=== PATIENT | female | born 1940 | race Caucasian/White ===

== ENCOUNTER 2017-05-23 09:28 | Inpatient (IN) ==
[2017-05-23] MEDS ORDERED: LORazepam 1 MG TABLET PO ONE (09:54)
--- OUTSIDE RECORDS SUMMARY | 2017-05-23 10:30 | External Medical Summary ---
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 76696734 Problem Unspecified urinary R32 Active 775017213 incontinence Problem Cervical disc M50.90 Active 340270919 disease Problem Cognitive impairment R41.89 Active 026594460 Problem Memory impairment R41.3 Active 847136854 Problem Bilateral carotid I77.9 Active 473781698 artery disease Problem Anxiety F41.9 Active 83525170 Problem Hyperlipidemia E78.5 Active 19630276 ALLERGIES No Information SOCIAL HISTORY Never Assessed PLAN OF CARE VITAL SIGNS MEDICATIONS Unknown Medications RESULTS No Results PROCEDURES No Known procedures IMMUNIZATIONS No Known Immunizations MEDICAL (GENERAL) HISTORY Type Description Date Medical History hyperlipidemia Medical History Hypothyroidism Medical History urinary incontinence Medical History R Carotid Artery stenosis, 50-69% - Doppler - 05/26 - Repeat in 2 yrs Surgical History hysterectomy with BSO, abdominal (benign) 1966 Surgical History Right Upper Arm Cyst Removed 1974 Surgical History Left carotid endarterectomy--Dr. Fang 11/19/09 Surgical History Colonoscopy- normal limits -repeat in 5 yrs due to 02/06/12 hx- (Dr. Overton) Surgical History Negative Cardiolite Stress Test 11/23/12 Surgical History colonoscopy Repeat 5 yr due to prior hx polyps 2006 Hospitalization History [facility]- Chest Pain 04/16/08
--- OUTSIDE RECORDS SUMMARY | 2017-05-23 10:30 | External Medical Summary ---
:1940 Author Organization [employer] Care Team Providers Name Role Phone Fransisco Blanco Provider Role Unavailable Allergies, Adverse Reactions, Alerts Substance Reaction Event Type Latex Info Not Available Drug Allergy sulfa anaphylaxis Drug Allergy Lipitor ruined her muscles Drug Allergy Crestor tingling in extremities Drug Allergy Clindamycin dizzy Drug Allergy Problems Problem Type Condition Code Onset Dates Condition Status Assessment Mixed hyperlipidemia E78.2 Active Assessment Bilateral carotid artery disease I77.9 Active Assessment Other fatigue R53.83 Active Assessment Screening breast examination Z12.39 Active Problem Erythromelalgia 443.82 Active Problem Right carotid bruit 785.9 Active Problem Bilateral carotid artery disease I77.9 Active Problem Hypothyroidism, Unspecified 244.9 Active Assessment Primary osteoarthritis involving M15.0 Active multiple joints Problem Urinary incontinence; unspecified 788.30 Active Problem Hyperlipidemia, Other and 272.4 Active unspecified Medications Medication Code Code Instructions Start End Status Dosage System Date Date Probiotic NDC 39441-6 - Orally as directed 025 [place] [address]-6 0.05 % Nov 12 application 163-30 Externally 2014 to [place] [address]-4 25 MG Orally 3 capsule as 840-13 bid needed Coenzyme Q10 NDC 42770-2 100 MG Orally 1 capsule with 446-20 Once a day a meal Multivitamins NDC 35622-4 Orally as directed 2040 [place] [address]-0 15 MG Orally Oct 19, 1 tablet 030-01 Once a [place] 2014 [place] [address]-4 1000 MG *keep September 07 tablet at 080-90 on file as pt 2011 bedtime does not need today* Orally Q HS Aspirin NDC 49702-0 81 MG ORAL QD July 10 TABLETS 100-12 (every day) 2010 [place] [address]-4 1200 Orally QD July 11 capsules 557-72 (Every day) 2011 [place] [address]-3 10 MG Orally Oct 19, 1 tablet 283-30 Once a day 2014 Ativan NDC 53389-7 0.5 MG Orally Oct 19, 1 tablet 937-60 Twice a day prn 2015 anxiety Milk Thistle NDC 56011-2 - Orally as directed 1505 Biotin NDC 91036-8 1000 MCG Orally 1 tablet 9900 Once a day Glucosamine NDC 62634-5 Orally as directed Chondr 500 2488 Complex Procedures Procedure Coding System Code Date LIPID PROFILE CPT-4 38493 May 06, 2015 TSH CPT-4 91760 May 06, 2015 COMP PROFILE CPT-4 13435 May 06, 2015 OFFICE VISITEST PT CPT-4 26048 May 06, 2015 Vital Signs Date/Time: May 06, 2015 Blood Pressure Systolic 132 mm Hg Height 61 in Weight 124 lbs BMI 23.43 Index Blood Pressure Diastolic 70 mm Hg Results No Known Results Summary Purpose [employer] Submission
--- OUTSIDE RECORDS SUMMARY | 2017-05-23 10:30 | External Medical Summary ---
:[address] 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 19384761 Problem Hyperlipidemia E78.5 Active 20757196 Problem Memory impairment R41.3 Active 572095259 ALLERGIES Substance Reaction Event Type Date Status Latex anaphylaxis Drug Allergy Oct, Active sulfa anaphylaxis Drug Allergy Oct, Active Lipitor ruined her muscles Drug Allergy Oct, Active Iodine "can't handle it" Drug Allergy Oct, Active Crestor tingling in extremities Drug Allergy Oct, Active Clindamycin dizzy Drug Allergy Oct, Active SOCIAL HISTORY No smoking Hx information available PLAN OF CARE Activity Details Follow Up prn Reason: VITAL SIGNS Weight 122.7 lbs 2016-10-17 Height 61 in 2016-10-17 BMI 23.18 kg/m2 2016-10-17 Blood pressure systolic 128 mm Hg 2016-10-17 Blood pressure diastolic 78 mm Hg 2016-10-17 MEDICATIONS Medication Instructions Dosage Frequency Start End Duration Status Date Date Glucosamine Orally Once a 1 capsule 24h Active Chondr 500 day Complex Niacin 500 MG Orally Once a 1 capsule 24h 30 day(s) Active day L-Lysine 1000 MG Orally Once a 1 tablet 24h Active day Tylenol PM Extra Orally Once a 1 tablet at 30 day(s) Active Strength 25-500 day PRN bedtime as MG needed Co Q 10 100 MG Orally Once a 1 capsule with 24h 30 day(s) Active day a meal Minocin 100 MG Orally Twice a 1 capsule 12h 10 Oct, 30 days Active day 2016 Lorazepam 0.5 MG Orally BID- PRN 1 tablet as 30 days Active needed Biotin 5000 MCG Sublingual Once 1 tablet 24h Active a day Second Mesa 3 1000 MG Orally Once a 1 capsule 24h 30 day(s) Active day Milk Thistle 175 Orally Once a 1 capsule 24h Active MG day Triamcinolone Externally 1 application 12h Sep, Active Acetonide 0.1 % Twice a day sparingly to 2017 affected area Aspirin 81 MG ORAL QD (every 1 TABLET Jul, DAYS Active day) 2010 Lexapro 10 MG Orally Once a 1 tablet 24h 30 day(s) Active day Calcium, PO QD 1 tablet 24h Active Magnesium, Zinc with D3 and Vitamin D Probiotic - Orally Once a 1 capsule 24h Active day Ativan 0.5 MG Orally Twice a 1 tablet Sep, Active day prn anxiety 2016 RESULTS No Results PROCEDURES Procedure Date Ordered Related Diagnosis Body Site OFFICE VISITEST PT October 17, 2016 IMMUNIZATIONS No Known Immunizations
--- OUTSIDE RECORDS SUMMARY | 2017-05-23 10:30 | External Medical Summary ---
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 48669513 Problem Unspecified urinary R32 Active 536749025 incontinence Problem Cervical disc M50.90 Active 122711720 disease Problem Cognitive impairment R41.89 Active 920296397 Problem Memory impairment R41.3 Active 128236668 Problem Bilateral carotid I77.9 Active 354680473 artery disease Problem Anxiety F41.9 Active 32678247 Problem Hyperlipidemia E78.5 Active 64329293 ALLERGIES No Information SOCIAL HISTORY Never Assessed PLAN OF CARE Activity Details Pending Test NUCLEAR MED : Cardiolite Stress Test VITAL SIGNS MEDICATIONS Unknown Medications RESULTS No Results PROCEDURES Procedure Date Ordered Result Body Site STRESS EKG Apr 12, 2017 TC99M CARDIOLITE Apr 12, 2017 multiple studies, at rest and /or stress (exercise or Apr 12, 2017 pharmacologic) and /or redistribution and or/or rest reinjection IMMUNIZATIONS No Known Immunizations MEDICAL (GENERAL) HISTORY Type Description Date Medical History hyperlipidemia Medical History Hypothyroidism Medical History urinary incontinence Medical History R Carotid Artery stenosis, 50-69% - Doppler - 05/26 - Repeat in 2 yrs Surgical History hysterectomy with BSO, abdominal (benign) 1967 Surgical History Right Upper Arm Cyst Removed 1974 Surgical History Left carotid endarterectomy--Dr. Fang 11/19/09 Surgical History Colonoscopy- normal limits -repeat in 5 yrs due to 02/06/12 hx- (Dr. Overton) Surgical History Negative Cardiolite Stress Test 11/23/12 Surgical History colonoscopy Repeat 5 yr due to prior hx polyps 2006 Hospitalization History [facility]- Chest Pain 04/16/08
--- OUTSIDE RECORDS SUMMARY | 2017-05-23 10:30 | External Medical Summary ---
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
--- OUTSIDE RECORDS SUMMARY | 2017-05-23 10:30 | External Medical Summary ---
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
--- OUTSIDE RECORDS SUMMARY | 2017-05-23 10:30 | External Medical Summary ---
:1940 Author Organization [employer] Care Team Providers Name Role Phone Fransisco Blanco Provider Role Unavailable Allergies No Known Allergies Problems Problem Type Condition ICD-9 Code Onset Dates Condition Status Problem Right carotid bruit 785.9 Active Problem Urinary incontinence; 788.30 Active unspecified Problem Erythromelalgia 443.82 Active Problem Hyperlipidemia, Other and 272.4 Active unspecified Problem Hypothyroidism, Unspecified 244.9 Active Medications No Known Medications Results No Known Results Summary Purpose [employer] Submission
--- OUTSIDE RECORDS SUMMARY | 2017-05-23 10:30 | External Medical Summary ---
:1940 Author Organization [employer] Care Team Providers Name Role Phone Fransisco Blanco Provider Role Unavailable Allergies No Known Allergies Problems Problem Type Condition Code Onset Dates Condition Status Problem Erythromelalgia 443.82 Active Problem Right carotid bruit 785.9 Active Problem Bilateral carotid artery disease I77.9 Active Problem Hypothyroidism, Unspecified 244.9 Active Assessment Screening breast examination Z12.39 Active Problem Urinary incontinence; unspecified 788.30 Active Problem Hyperlipidemia, Other and 272.4 Active unspecified Medications No Known Medications Procedures Procedure Coding System Code Date COMPUTER AIDED SCR CPT-4 35556 May 06, 2015 BILATERAL SCR MAMMO CPT-4 46695 May 06, 2015 Results Name Result Date Reference Range Unit Abnormality Flag Mammogram, bilateral screening Summary Purpose [employer] Submission
--- OUTSIDE RECORDS SUMMARY | 2017-05-23 10:30 | External Medical Summary ---
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 31497300 Problem Hyperlipidemia E78.5 Active 17059784 Problem Memory impairment R41.3 Active 155498139 ALLERGIES Substance Reaction Event Type Date Status Latex anaphylaxis Drug Allergy Nov, Active sulfa anaphylaxis Drug Allergy Nov, Active Lipitor ruined her muscles Drug Allergy Nov, Active Iodine "can't handle it" Drug Allergy Nov, Active Crestor tingling in extremities Drug Allergy Nov, Active Clindamycin dizzy Drug Allergy Nov, Active SOCIAL HISTORY No smoking Hx information available PLAN OF CARE Activity Details Follow Up 4 Weeks Reason: VITAL SIGNS Weight 117.4 lbs 2016-12-07 Height 61 in 2016-12-07 BMI 22.18 kg/m2 2016-12-07 Blood pressure systolic 118 mm Hg 2016-12-07 Blood pressure diastolic 68 mm Hg 2016-12-07 MEDICATIONS Medication Instructions Dosage Frequency Start End Duration Status Date Date Probiotic - Orally Once a 1 capsule 24h Active day Calcium, PO QD 1 tablet 24h Active Magnesium, Zinc with D3 and Vitamin D Biotin 5000 MCG Sublingual Once 1 tablet 24h Active a day Co Q 10 100 MG Orally Once a 1 capsule with 24h 30 day(s) Active day a meal Glucosamine Orally Once a 1 capsule 24h Active Chondr 500 day Complex Lorazepam 0.5 MG Orally BID- PRN 1 tablet as 30 days Active needed Triamcinolone Externally 1 application 12h 08 Bello, Active Acetonide 0.1 % Twice a day sparingly to 2017 affected area Tylenol PM Extra Orally Once a 1 tablet at 30 day(s) Active Strength 25-500 day PRN bedtime as MG needed Milk Thistle 175 Orally Once a 1 capsule 24h Active MG day [place] 3 1000 MG Orally Once a 1 capsule 24h 30 day(s) Active day Ativan 0.5 MG Orally Twice a 1 tablet Sep, Active day prn anxiety 2016 L-Lysine 1000 MG Orally Once a 1 tablet 24h Active day Aspirin 81 MG ORAL QD (every 1 TABLET Jul, DAYS Active day) 2010 Niacin 500 MG Orally Once a 1 capsule 24h 30 day(s) Active day Lexapro 10 MG Orally Once a 1 tablet 24h 30 day(s) Active day RESULTS No Results PROCEDURES Procedure Date Ordered Related Diagnosis Body Site OFFICE VISITEST PT Dec 07, 2016 IMMUNIZATIONS No Known Immunizations
--- OUTSIDE RECORDS SUMMARY | 2017-05-23 10:30 | External Medical Summary ---
[...] Condition Code Onset Dates Condition Status Assessment Asthma 493.90 Active Problem Right carotid bruit 785.9 Active Problem Urinary incontinence; unspecified 788.30 Active Problem Erythromelalgia 443.82 Active Assessment Carotid artery disease 447.9 Active Assessment Hyperlipidemia 272.4 Active Problem Hyperlipidemia, Other and 272.4 Active unspecified Problem Hypothyroidism, Unspecified 244.9 Active Medications Medication Code Code Instructions Start End Status Dosage [place] [address]-29 100 MG Orally 1 capsule 46-20 [place] [address]-09 81 MG ORAL QD July 16 (one) 00-12 (every day) 2010 TABLET QD (every day) [place] [address]-94 4 MG Orally Once July 28, 1 tablet 72-90 a day 2014 [place] [address]-92 Orally as directed Chondr 500 [address] [place] [address]-37 1000 MCG Orally 1 tablet 900 [place] [address]-79 25 MG Orally bid 3 capsule 40-13 [place] [address]-43 Orally QD 1 tablet 30- [place] [address]-88 100-25 MCG/INH July 28, puff 59-10 Inhalation Once 2014 [place] [address]-94 - Orally as directed 505 [place] [address]-18 Orally as directed 041 [place] [address]-76 1200 Orally QD July 13, 3 capsules 57-72 (Every day) 2011 [place] [address]-50 1000 MG *keep on September 07 1 tablet at 80-90 file as pt does 2011 bedtime not need today* [place] [address]-17 - Orally as directed 256 Procedures Procedure Coding System Code Date OFFICE VISITEST PT CPT-4 79649 July 28, 2014 Vital Signs Date/Time: July 28, 2014 Blood Pressure Systolic 122 mm Hg Height 61 in Weight 124.6 lbs BMI 23.54 Index Blood Pressure Diastolic 72 mm Hg Results No Known Results Summary Purpose [employer] Submission
--- OUTSIDE RECORDS SUMMARY | 2017-05-23 10:31 | External Medical Summary ---
:1940 Author Organization [employer] Care Team Providers Name Role Phone Fransisco Blanco Provider Role Unavailable Allergies No Known Allergies Problems Problem Type Condition Code Onset Dates Condition Status Problem Right carotid bruit 785.9 Active Problem Urinary incontinence; unspecified 788.30 Active Problem Erythromelalgia 443.82 Active Assessment Hyperlipidemia 272.4 Active Assessment Encounter for long-term (current) V58.69 Active drug use Problem Hyperlipidemia, Other and 272.4 Active unspecified Problem Hypothyroidism, Unspecified 244.9 Active Medications No Known Medications Results No Known Results Summary Purpose [employer] Submission
--- OUTSIDE RECORDS SUMMARY | 2017-05-23 10:31 | External Medical Summary ---
[...] Active Problem Hypothyroidism, Unspecified 244.9 Active Assessment Other atopic dermatitis L20.89 Active Problem Urinary incontinence; unspecified 788.30 Active Problem Hyperlipidemia, Other and 272.4 Active unspecified Medications Medication Code Code Instructions Start End Status Dosage System Date Date Coenzyme Q10 NDC 40825-6 100 MG Orally 1 capsule with 446-20 Once a day a meal Benadryl NDC 78504-3 25 MG Orally 3 capsule as 840-13 bid needed Milk Thistle NDC 81571-1 - Orally as directed 1505 Fish Oil NDC 58320-1 1200 Orally QD July 3 capsules 557-72 (Every day) 2011 Temovate NDC 99495-2 0.05 % Nov 12, 1 application 163-30 Externally 2014 to affected Twice a day area Aspirin NDC 86153-5 81 MG ORAL QD July 2 TABLETS 100-12 (every day) 2010 PredniSONE NDC 33564-4 10 MG Orally Nov 23, 3 po qd for 4 017-20 Once a day 2015 days, then 2 po qd x 4 days, then 1 po qd for 4 days, then off Multivitamins NDC 36033-0 Orally as directed 173-06 Probiotic NDC 23487-0 - Orally as directed 0256 Biotin NDC 88705-7 1000 MCG Orally 1 tablet 9900 Once a day Glucosamine NDC 70570-2 Orally as directed Chondr 500 2488 Complex VESIcare NDC 34666-5 10 MG Orally Jan 26, 1 tablet 283-30 Once a day 2014 Mobic NDC 60357-3 15 MG Orally Oct 19, 1 tablet 030-01 Once a day 2014 Ativan NDC 82795-4 0.5 MG Orally Oct 19, 1 tablet 937-60 Twice a day prn 2014 anxiety Procedures Procedure Coding System Code Date OFFICE VISITEST PT CPT-4 16029 Nov 24, 2015 Vital Signs Date/Time: Nov 24, 2015 Blood Pressure Systolic 120 mm Hg Height 61 in Weight 121.8 lbs BMI 23.01 Index Blood Pressure Diastolic 74 mm Hg Results No Known Results Summary Purpose [employer] Submission
--- OUTSIDE RECORDS SUMMARY | 2017-05-23 10:31 | External Medical Summary ---
:1940 Author Organization [facility] Care Team Providers Name Role Phone Helga Dominguez Provider Role Unavailable Allergies No Known Allergies Problems Problem Type Condition ICD-9 Code Onset Dates Condition Status Assessment Hypothyroidism, Unspecified 244.9 Active Assessment Visit for screening mammogram V76.12 Active Problem Right carotid bruit 785.9 Active Problem Urinary incontinence; 788.30 Active unspecified Problem Erythromelalgia 443.82 Active Assessment Hyperlipidemia, Other and 272.4 Active unspecified Assessment Postmenopausal V49.81 Active Problem Hyperlipidemia, Other and 272.4 Active unspecified Problem Hypothyroidism, Unspecified 244.9 Active Medications No Known Medications Procedures Procedure Coding System Code Date DXA BONE DENSITY/PERIPHERAL CPT-4 64022 Apr 30, 2014 Results No Known Results Summary Purpose [employer] Submission
--- OUTSIDE RECORDS SUMMARY | 2017-05-23 10:31 | External Medical Summary ---
:1940 Author Organization [employer] Care Team Providers Name Role Phone Fransisco Blanco Provider Role Unavailable Allergies No Known Allergies Problems Problem Type Condition Code Onset Dates Condition Status Problem Right carotid bruit 785.9 Active Problem Urinary incontinence; unspecified 788.30 Active Problem Erythromelalgia 443.82 Active Problem Hyperlipidemia, Other and 272.4 Active unspecified Problem Hypothyroidism, Unspecified 244.9 Active Medications No Known Medications Results No Known Results Summary Purpose [employer] Submission
--- OUTSIDE RECORDS SUMMARY | 2017-05-23 10:31 | External Medical Summary ---
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 Assessment TEMO (generalized anxiety disorder) F41.1 Active Problem Hyperlipidemia, Other and 272.4 Active unspecified Problem Hypothyroidism, Unspecified 244.9 Active Medications Medication Code Code Instructions Start End Status Dosage System Date Date Temovate NDC 91020-1 0.05 % Nov 12 application 163-30 Externally 2015 to affected Twice a day area Aspirin NDC 38615-7 81 MG ORAL QD July 2 TABLETS 100-12 (every day) 2010 Coenzyme Q10 NDC 66486-4 100 MG Orally 1 capsule with 446-20 Once a day a meal Benadryl NDC 30470-3 25 MG Orally 3 capsule as 840-13 bid needed Ativan NDC 62225-8 0.5 MG Orally Oct 19, 1 tablet 937-60 Twice a day prn 2014 anxiety Fish Oil NDC 52091-1 1200 Orally QD July 3 capsules 557-72 (Every day) 2011 Glucosamine NDC 52845-3 Orally as directed Chondr 500 2488 Complex Biotin NDC 22962-9 1000 MCG Orally 1 tablet 9900 Once a day Niaspan NDC 13466-1 1000 MG *keep September 07 tablet at 080-90 on file as pt 2011 bedtime does not need today* Orally Q HS Probiotic NDC 53552-3 - Orally as directed 0256 Milk Thistle NDC 87403-3 - Orally as directed 1505 Mobic NDC 33629-7 15 MG Orally Oct 19, 1 tablet 030-01 Once a day 2014 VESIcare [facility] 47486-0 10 MG Orally Jan 19, tablet 283-30 Once a day 2014 Multivitamins [facility] 90404-4 Orally as directed 2040 Procedures Procedure Coding System Code Date OFFICE VISITEST PT CPT-4 93278 Feb 11, 2015 Vital Signs Date/Time: Feb 11, 2015 Blood Pressure Systolic 118 mm Hg Height 61 in Weight 125.6 lbs BMI 23.73 Index Blood Pressure Diastolic 78 mm Hg Results No Known Results Summary Purpose [employer] Submission
--- OUTSIDE RECORDS SUMMARY | 2017-05-23 10:31 | External Medical Summary ---
:1940 Author Organization [facility] Address [address] [place] [address] Care Team Providers Name Role Phone Fransisco Blanco Unavailable Unavailable PROBLEMS Type Condition ICD9-CM [id number] Onset Condition SNOMED Code Code Code Dates Status Problem Unspecified E03.9 Active 67731736 hypothyroidism Problem Erythromelalgia I73.81 Active 50789850 Problem Unspecified urinary R32 Active 918258602 incontinence Problem Cervical disc M50.90 Active 472959996 disease Problem Cognitive impairment R41.89 Active 249374888 Problem Memory impairment R41.3 Active 414481244 Problem Bilateral carotid I77.9 Active 015641772 artery disease Problem Anxiety F41.9 Active 10415727 Problem Hyperlipidemia E78.5 Active 97302526 ALLERGIES Substance Reaction Event Type Date Status Latex anaphylaxis Drug Allergy May, Active sulfa anaphylaxis Drug Allergy May, Active Lipitor ruined her muscles Drug Allergy May, Active Iodine "can't handle it" Drug Allergy May, Active Crestor tingling in extremities Drug Allergy May, Active Clindamycin dizzy Drug Allergy May, Active ENCOUNTERS Encounter Location Date Diagnosis [facility] [address] [place] [address] May, Physicians [place] [address] [facility] [address] [place] [address] May, Physicians [place] 1964[address] [facility] [address] [facility] May, Physicians [place] [address] [facility] [address] [place] [address] May, Encounter for general adult [facility] [facility] [address] medical examination without abnormal findings Z00.00 [facility] [address] Apr, Physicians [place] [address] [facility] [address] [facility] Apr, Physicians [place] [facility] [address] [facility] [address] [place] [address] Apr, Precordial pain R07.2 [facility] [address] [place] [address] Apr, Cervical disc disease M50.90 [facility]212 ; Other chest pain R07.89 and Neck pain M54.[address] Mar, Cervical disc disease M50.90 [facility] ; Neck pain M54.2 and Other chest pain R07.[address] Mar, Phys[facility] [place] GUILLEN212 [address] Mar, Physicians [address] [place] [address] Feb, Cognitive impairment R41.89 [facility]EN[address] Feb, Physicians [facility] [address] [place] [address] Nov, Confusion R41.0 and Anxiety [facility]EN212 F41.[address] Oct, MRSA (methicillin resistant [facility]212 Staphylococcus aureus) A49.02 and Anxiety F41.[address] Sep, Memory impairment R41.3 ; [facility]icians [facility] Anxiety F41.9 and Allergy to mites Z91.[address] Jun, Phys[facility] [place] GUILLEN[address] May, Memory impairment R41.3 ; [facility] Anxiety F41.9 and Palpitations R00.[address] May, Encounter for screening [facility] mammogram for breast cancer Z12.[address] May, Hyperlipidemia E78.5 ; [facility] Bilateral carotid artery disease I77.9 ; Encounter for screening mammogram for malignant neoplasm of breast Z12.31 and Memory impairment R41.[address] May, Encounter for general adult Phys[facility] GUILLEN212 medical examination without abnormal findings Z00.00 [facility] [address] [place] [address] Apr, Physicians [place] GUILLEN [address] Nov, Other atopic dermatitis [facility] L20.[address] May, 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 ; Bilateral carotid artery disease I77.9 ; Other fatigue R53.83 ; Mixed hyperlipidemia E78.2 and Screening breast examination Z12.39 [facility] [address] [place] [address] Apr, Screening breast examination [facility] Z12.[address] Apr, 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 ; Bilateral carotid artery disease I77.9 ; Other fatigue R53.83 ; Mixed hyperlipidemia E78.2 and Screening breast examination Z12.[address] Mar, Physicians [facility] GUILL[facility] [address] Mar, Acute pansinusitis, [facility] recurrence not specified J01.40 and Eustachian tube dysfunction, left H69.[address] 04 Feb, 2015 TEMO (generalized anxiety [facility] disorder) F41.[address] Jan, Spondylosis 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[facility] region without myelopathy or radiculopathy M47.812 ; Neck pain M54.2 ; Polyarthralgia M25.50 ; Mixed incontinence N39.46 ; Frequent urination R35.0 and Needs flu shot Z23 [address] Dec, Phys[facility] GUILL[facility] [address] Nov, Physicians [facility] GUILL[facility] [address] Nov, Adult Wellness Exam V70.0 [facility] [address] Nov, Hypothyroidism, Unspecified [facility]EN212 [address] Nov, Hypothyroidism, Unspecified [facility] 244.[address] Nov, Hyperlipidemia, Other and Phys[facility] GUI[facility] unspecified 272.[address] Nov, Vaginal lesion 623.8 and Phys[facility] GUI[facility] Atopic dermatitis 691.[address] Oct, Hyperlipidemia 272.4 and Phys[facility] Encounter for long-term (current) drug use V58.[address] Jul, Hyperlipidemia 272.4 [facility] [address] Jul, Hyperlipidemia 272.4 and Physicians [facility] Encounter for long-term (current) drug use V58.[address] Jul, Carotid artery disease 447.9 [facility] ; Hyperlipidemia 272.4 and Asthma 493.[address] Jul, Carotid artery disease 447.9 [facility] ; Hyperlipidemia 272.4 and Asthma 493.[address] Apr, Visit for screening [facility] mammogram V76.[address] Apr, Hyperlipidemia, Other and Physicians [facility] unspecified 272.4 ; Postmenopausal V49.81 ; Hypothyroidism, Unspecified 244.9 and Visit for screening mammogram V76.[address] Apr, Hyperlipidemia, Other and Physicians [facility] GUI[facility] unspecified 272.4 ; Hypothyroidism, Unspecified 244.9 ; Visit for screening mammogram V76.12 and Postmenopausal V49.[address] Apr, Physicians W[facility] GUILLEN [address] Mar, Phys[facility] GUILL[facility] [address] Feb, Physicians WARR[place] GUILLEN [id number] [place], [place] [address]ta [facility] [address] Feb, Physicians WARREN GUILLEN [id number] [place] [address] Family [address] Feb, Physicians WARR[place] GUILLEN [id number] [place] [address] Family [address] Feb, Chest pain, unspecified Physicians W[facility] GUILLEN212 786.50 [facility] [address] Feb, Physicians WARREN GUILLEN [address] [place] [address] [address] Feb, Chest pain, unspecified Phys[facility] W[facility] GUILLEN212 786.50 [facility] [address] Jan, Physicians [place] [address] [facility] [address] Jan, Chest pain, unspecified Phys[facility] W[facility] GUILLEN212 786.50 [facility] [address] Jan, Physicians WARR[place] GUILLEN [id number] [place] [address] [address] Oct, Physicians W[place] GUILLEN [id number] [place] [address] [address] August, Physicians W[place] GUI[place] [id number] [place] [address] [address] August, Physicians [place]EN [address] [facility] [address] Jul, Physicians [place] [address] [facility] [address] Jul, Physicians [place] [address] [facility] [address] Jul, Erythromelalgia 443.82 [facility] [place] [facility] [address] [facility] [address] Jul, Physicians [place] [address] [facility] [address] Jul, Paresthesias 782.0 [facility] GUILLEN212 [facility] [address] Jun, Pain in limb 729.5 [facility] W[facility] GUILLEN212 [facility] [address] Jun, Physicians WARREN GUILLEN212 [facility] [address] Jun, Physicians WARREN GUILLEN [facility] [address] [place] [address] Jun, Fatigue 780.79 ; Physicians W[facility] GUILLEN Polyarthralgia 719.49 ; Paresthesia of foot 782.0 and Myalgia 729.1 [facility] [address] [place] [address] Jun, Physicians WARR[facility] GUILLEN [address] May, Physicians W[place] GUILLEN212 [address] May, Tingling in extremities [facility] W[facility] GUILLEN 782.0 [facility] [address] [place] [address] May, Physicians W[place] GUILLEN212 [address] Apr, Hyperlipidemia, Other and Physicians [facility] GUI[facility] unspecified 272.4 ; Visit for screening mammogram V76.12 ; Hypothyroidism, Unspecified 244.9 and Right carotid bruit 785.[address] Apr, Hyperlipidemia, Other and Physicians W[facility] GUILL[facility] unspecified 272.4 ; Hypothyroidism, Unspecified 244.9 ; Right carotid bruit 785.9 and Visit for screening mammogram V76.[address] Nov, Chest pain 786.50 [facility] GUILLEN212 [address] Nov, Chest wall pain 786.52 [facility] GUILLEN212 [address] Nov, Vision changes 368.9 ; Physicians [facility] GUI[facility] Hyperlipidemia, Other and unspecified 272.4 ; Dermatitis 692.9 and Potassium (K) excess 276.[address] Oct, Chest wall pain 786.52 [facility] GUILLEN212 [address] Oct, Physicians [facility] GUILLEN [address] August, Chest wall pain 786.52 [facility] [address] Jul, Physicians [facility] GUILLEN [address] Jul, Potassium (K) excess 276.7 [facility] [id number] [place] [address] Jul, Potassium (K) excess 276.7 [facility] [place] [address] Jun, Physicians W[place] GUILLEN212 [address] Jun, Bronchitis, not specified as [facility] GUI[facility]EN2 acute or chronic 490 and Upper respiratory infections of unspecified site, Acute 465.[address] May, Physicians [place] GUI[place] [id number] [place] [address] May, Vision changes 368.9 [facility] [address] [place] [address] May, Vision changes 368.9 and Phys[facility] Dermatitis 692.[address] May, Physicians W[place] GUILLEN212 [address] May, Hyperlipidemia, Other and Physicians [facility] GUILLEN unspecified 272.[address] May, RUQ abdominal pain 789.01 [facility] [place] [facility] [address] May, RUQ abdominal pain 789.01 [facility]EN212 and Right carotid bruit 785.[address] Apr, Physicians W[place] GUILLEN212 [address] Mar, Hyperlipidemia, Other and Physicians [facility] GUILLEN unspecified 272.[address] Mar, Physicians WARR[place] GUILLEN [address] Feb, Adult Wellness Exam V70.0 [facility] and Mammogram Screening V76.[address] Feb, Adult Wellness Exam V70.0 ; Physicians [facility] GUI[facility] Hypothyroidism, Unspecified 244.9 ; Hyperlipidemia, Other and unspecified 272.4 and Urinary incontinence 788.30 [facility] [address] [facility] Jan, [facility] [place] [address] [facility] [address] [facility] Jan, [place] [address] [facility] [address] [facility] Jan, Physicians WARR[facility] GUILLEN [address] [place] [address] [place] [address] Dec, Pre-operative cardiovascular [facility] W[place] GUILLEN212 examination V72.81 [facility] [address] [place] [address] Dec, Physicians WARREN GUILLEN [address] [place] [address] [place] [address] Dec, Physicians WARREN GUILLEN [address] [place] [address] [place] [address] Dec, Physicians WARREN GUILLEN [address] [place] [address] [place] [address] Nov, Enthesopathy of unspecified Physicians W[facility] GUILLEN212 site 726.90 and Cardiovascular system, Symptoms involving 785.9 [facility] [address] [place] [address] Nov, Physicians WARREN GUILLEN [address] [place] [address] [place] [address] Oct, Hyperlipidemia, Other and Physicians W[place] GUILLEN212 unspecified 272.4 [facility] [address] [place] [address] Sep, Physicians WARREN GUILLEN [address] [place] [address] [place] [address] Sep, Physicians WARREN GUILLEN [address] [place] [address] [place] [address] Sep, Hyperlipidemia, Other and Physicians W[place] GUILLEN212 unspecified 272.4 [facility] [address] [place] [address] August, Unspecified myalgia and [facility] [place] [facility] [address] myositis 729.1 ; Hyperlipidemia, Other and unspecified 272.4 and Urinary incontinence; unspecified 788.30 [facility] [address] [place] [address] August, Physicians W[place] GUI[place]EN [address] [facility] [address] [place] [address] August, Physicians WARREN GUILLEN212 [facility] [address] [place] [address] August, Physicians WARREN GUILLEN212 [facility] [address] August, Hyperlipidemia, Other and Physicians W[place] GUILLEN212 unspecified 272.4 [facility] [address] August, Hyperlipidemia, Other and Physicians W[facility] GUILLEN unspecified 272.4 ; Ear pain (Otalgia) 388.70 and Allergic rhinitis, cause unspecified 477.9 [facility] [address] August, [facility]212 [facility] [address] August, Physicians W[place] GUILLEN212 [facility] [address] Jul, Physicians WARR[place] GUILLEN212 [facility] [address] Jul, Physicians W[place] GUILLEN212 [facility] [address] Jul, Physicians W[place] GUILLEN212 [facility] [address] Jul, Hyperlipidemia, Other and Physicians WARR[facility] GUILLEN unspecified 272.4 [facility] [address] Jul, Physicians W[place] GUILLEN212 [facility] [address] Jul, Physicians [place] [facility] [address] [facility] [address] Jun, Phys[facility] [place] [facility] [address] [facility] [address] Jun, Physicians [place] [facility] [address] [facility] [address] Jun, Physicians W[place] GUILLEN212 [facility] [address] Jun, Physicians W[place] GUILLEN212 [facility] [address] Jun, [facility]EN212 [facility] [address] May, Physicians WARREN GUILLEN212 [facility] [address] May, Physicians WARREN GUILLEN [facility] [address] May, Headache 784.0 [facility]icians [facility] GUI[facility] [address] May, Headache 784.0 [facility] [address] May, Physicians [place] [facility] [address] [facility] [address] May, Physicians [place] [address] [facility] [address] May, Herpes zoster without [facility] [place] 11858 mention of complication 053.9 and Disturbance of salivary secretion 527.7 [facility] [address] Feb, Phys[facility] [place] [facility] [address] [facility] [address] Feb, Physicians W[place] GUILLEN212 [facility] [address] Feb, Physicians [place] GUI[place]EN [address] [facility] [address] Feb, Physicians W[place] GUILL[facility] [address] Jan, Physicians [place] [address] [facility] [address] Jan, Physicians [place] [address] [facility] [address] Dec, Physicians [place] [facility] [address] [facility] [address] August, Physicians [place]EN [address] [facility] [address] August, [facility] W[place]OTT [address] [facility] [address] August, Phys[facility] [facility]EN [address] [facility] [address] Jul, Physicians W[place] GUI[place]EN [address] [facility] [address] Jul, Physicians W[place]EN [address] [facility] [address] Jul, Physicians W[place]EN [address] [facility] [address] Apr, Physicians [place] GUI[place]EN [address] [facility] [address] Nov, Physicians WARREN GUILLEN [facility] [address] Nov, Physicians W[place] [facility]EN [address] [facility] [address] May, Physicians [place] [facility]EN [address] [facility] [address] Feb, Physicians W[facility] GUILLEN [facility] [address] Oct, Physicians W[place] GUI[place]EN [address] [place] [facility] [address] Jun, Physicians W[place] GUILLEN [address] [place] [facility] [address] Apr, Physicians W[place] GUILLEN [address] [place] [facility] [address] Mar, Physicians W[place] GUILLEN [address] [place] [facility] [address] Feb, Physicians WARREN GUILLEN [place] [facility] [address] May, Physicians W[place] GUILLEN [address] [place] [facility] [address] Mar, Physicians W[place] GUILLEN [address] [place] [facility] [address] Mar, Physicians W[place] GUILLEN [address] [place] [facility] [address] Mar, Physicians W[place] GUILLEN [address] [place] [facility] [address] Oct, Physicians W[place] GUILLEN [address] [place] [facility] [address] Oct, Physicians W[place] GUI[place]EN [address] [place] [facility] [address] Mar, Physicians [place] [address] IMMUNIZATIONS No Known Immunizations SOCIAL HISTORY Never Assessed REASON FOR VISIT Medicare AWV PLAN OF CARE Activity Details Follow Up 1 Year Reason: VITAL SIGNS Weight 115.8 lbs 2017-05-17 Height 61 in 2017-05-17 Heart Rate 73 /min 2017-05-17 Oximetry 99 % 2017-05-17 BMI 21.88 kg/m2 2017-05-17 Blood pressure systolic 100 mm Hg 2017-05-17 Blood pressure diastolic 62 mm Hg 2017-05-17 MEDICATIONS Medication Instructions Dosage Frequency Start End Duration Status Date Date Calcium, PO QD 1 tablet 24h Active Magnesium, Zinc with D3 and Vitamin D Tumeric TAKE PO Qd 1 24h Active DIRECTED [place] 3 1000 MG Orally Once a 1 capsule 24h 30 day(s) Active day Milk Thistle Orally Once a 1 capsule 24h Active 175 MG day Lorazepam 0.5 Orally BID- PRN 1 tablet as 30 days Active MG needed Glucosamine Orally Once a 1 capsule 24h Active Chondr 500 day Complex Aspirin 81 MG ORAL QD (every 1 TABLET Jul, Active day) 2010 Prevagen 10 MG Orally Once a 1 capsule 24h Active day Fish Oil Orally Three 1 capsule 8h Active [place]-3 1000 mg times a day Flaxseed Oil Orally Once a 1 capsule 24h Active 1000 mg day L-Lysine 1000 Orally Once a 1 tablet Active mg day PRN Super B Complex Orally Once a 1 TABLET 24h Active - day Lexapro 10 MG Orally Once a 1 tablet Active day PRN Niacin 500 MG Orally Once a 1 capsule 24h 30 day(s) Active day Centrum Silver Orally Once a 1 TABLET 24h Active - day Co Q 10 100 MG Orally Once a 1 capsule 24h 30 day(s) Active day with a meal Tylenol PM Orally q HS PRN 1 tablet at Active Extra Strength bedtime as 25-500 MG needed RESULTS No Results PROCEDURES Procedure Date Ordered Result [facility] May 17, 2017 INSTRUCTIONS MEDICATIONS ADMINISTERED No Known Medications MEDICAL (GENERAL) HISTORY Type Description Date Medical History R Carotid Artery stenosis, 50-69% - Doppler - 05/26 - Repeat in 2 yrs Medical History Unspecified hypothyroidism Medical History Unspecified urinary incontinence Medical History Bilateral carotid artery disease Medical History Hyperlipidemia Medical History Memory impairment Medical History Anxiety Medical History Cognitive impairment Medical History Cervical disc disease Surgical History hysterectomy with Bilateral Salpingo Oopherectomies, 1966 abdominal (benign) Surgical History Right Upper Arm Cyst Removed 1974 Surgical History colonoscopy- Repeat in 5 yrs due to prior hx of 2006 polyps Surgical History Left carotid endarterectomy--Dr. Fang 11/19/09 Surgical History Colonoscopy- normal limits -repeat in 5 yrs due to 02/06/12 hx- (Dr. Overton) Surgical History Negative Cardiolite Stress Test 11/23/12 Surgical History Negative Cardiolite Stress Test 04/12/17 Hospitalization History see above Hospitalization History [facility]- Chest Pain 04/16/08
--- OUTSIDE RECORDS SUMMARY | 2017-05-23 10:31 | External Medical Summary ---
:1940 Author Organization [employer] Care Team Providers Name Role Phone Fransisco Blanco Provider Role Unavailable Allergies No Known Allergies Problems Problem Type Condition Code Onset Dates Condition Status Problem Right carotid bruit 785.9 Active Problem Urinary incontinence; unspecified 788.30 Active Problem Erythromelalgia 443.82 Active Assessment Hyperlipidemia 272.4 Active Problem Hyperlipidemia, Other and 272.4 Active unspecified Problem Hypothyroidism, Unspecified 244.9 Active Medications No Known Medications Results No Known Results Summary Purpose [employer] Submission
--- OUTSIDE RECORDS SUMMARY | 2017-05-23 10:31 | External Medical Summary ---
:1940 Author Organization [facility] Address [address] [place] [address] Care Team Providers Name Role Phone Fransisco Blanco Unavailable Unavailable PROBLEMS Type Condition ICD9-CM [id number] Onset Condition SNOMED Code Code Code Dates Status Problem Unspecified E03.9 Active 57645388 hypothyroidism Problem Erythromelalgia I73.81 Active 99726149 Problem Unspecified urinary R32 Active 673960424 incontinence Problem Cervical disc M50.90 Active 175952447 disease Problem Cognitive impairment R41.89 Active 429033350 Problem Memory impairment R41.3 Active 249028294 Problem Bilateral carotid I77.9 Active 720961991 artery disease Problem Anxiety F41.9 Active 00415509 Problem Hyperlipidemia E78.5 Active 96275874 ALLERGIES No Information ENCOUNTERS Encounter Location Date Diagnosis [facility] [address] [place] [address] May, [facility], [address] [place] [address] May, [facility], [address] [place] [address] May, [facility], [address] [place] [address] May, Encounter for [place] [address] medical examination without abnormal findings Z00.00 [facility] [address] [place] [address] Apr, [facility], [address] [place] [address] Apr, [facility], [address] [place] [address] Apr, Precordial pain R07.2 [facility] [address] [place] [address] Apr, Cervical disc disease M50.90 [facility] [address] ; Other chest pain R07.89 and Neck pain M54.2 [facility] [address] [place] [address] Mar, Cervical disc disease M50.90 [facility] ; Neck pain M54.2 and Other chest pain R07.[address] Mar, [facility] Mar, [facility] [address] Feb, Cognitive impairment R41.89 [facility] [address] Feb, [facility] [address] Nov, Confusion R41.0 and Anxiety [facility] F41.[address] Oct, MRSA (methicillin resistant [facility] Staphylococcus aureus) A49.02 and Anxiety F41.[address] Sep, Memory impairment R41.3 ; [facility] Anxiety F41.9 and Allergy to mites Z91.[address] 14 Jun, 2016 [facility] May, Memory impairment R41.3 ; [facility] Anxiety F41.9 and Palpitations R00.[address] May, Encounter for screening [facility] mammogram for breast cancer Z12.[address] May, Hyperlipidemia E78.5 ; [facility] Bilateral carotid artery disease I77.9 ; Encounter for screening mammogram for malignant neoplasm of breast Z12.31 and Memory impairment R41.[address] May, Encounter for general adult [facility] medical examination without abnormal findings Z00.[address] Apr, [facility] [address] Nov, Other atopic dermatitis [facility] L20.[address] May, 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 ; Bilateral carotid artery disease I77.9 ; Other fatigue R53.83 ; Mixed hyperlipidemia E78.2 and Screening breast examination Z12.39 [facility] [address] [place] [address] Apr, Screening breast examination [facility] [address] Z12.39 [facility] [address] [place] [address] Apr, Primary osteoarthritis [facility]212 involving multiple joints M15.0 ; Bilateral carotid artery disease I77.9 ; Other fatigue R53.83 ; Mixed hyperlipidemia E78.2 and Screening breast examination Z12.[address] Mar, [facility] [address] Mar, Acute pansinusitis, [facility]212 recurrence not specified J01.40 and Eustachian tube dysfunction, left H69.[address] Feb, TEMO (generalized anxiety [facility] disorder) F41.[address] Jan, 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.812 ; Neck pain M54.2 ; Polyarthralgia M25.50 ; Mixed incontinence N39.46 ; Frequent urination R35.0 and Needs flu shot Z23 [address] Dec, [facility] Nov, [facility] Nov, Adult Wellness Exam V70.0 [facility] Nov, Hypothyroidism, Unspecified [facility] [address] Nov, Hypothyroidism, Unspecified [facility]212 [address] Nov, Hyperlipidemia, Other and [facility] unspecified 272.[address] Nov, Vaginal lesion 623.8 and [facility]212 Atopic dermatitis 691.[address] Oct, Hyperlipidemia 272.4 and [facility] Encounter for long-term (current) drug use V58.[address] Jul, Hyperlipidemia 272.4 [facility] [address] Jul, Hyperlipidemia 272.4 and [facility] Encounter for long-term (current) drug use V58.[address] Jul, Carotid artery disease 447.9 [facility] ; Hyperlipidemia 272.4 and Asthma 493.[address] Jul, Carotid artery disease 447.9 [facility] ; Hyperlipidemia 272.4 and Asthma 493.[address] Apr, Visit for screening [facility] mammogram V76.[address] Apr, Hyperlipidemia, Other and [facility] unspecified 272.4 ; Postmenopausal V49.81 ; Hypothyroidism, Unspecified 244.9 and Visit for screening mammogram V76.[address] Apr, Hyperlipidemia, Other and [facility] unspecified 272.4 ; Hypothyroidism, Unspecified 244.9 ; Visit for screening mammogram V76.12 and Postmenopausal V49.[address] Apr, [facility] [address] Mar, [facility] [address] Feb, [facility] [address] Feb, [facility] [address] Feb, [facility] [address] Feb, Chest pain, unspecified [facility] 786.50 [facility] [address] Feb, [facility] [id number] [place] [address] [address] Feb, Chest pain, unspecified [facility]212 786.50 [facility] [address] Jan, [facility] [address] [facility] [address] Jan, Chest pain, unspecified [facility] 786.50 [facility] [address] Jan, [facility] [id number] [place] [address] [address] Oct, [facility]212 [facility] [address] August, [facility] [address] [facility] [address] August, [facility] [address] [place] [address] [address] Jul, [facility] [address] [place] [address] [address] Jul, [facility] [place] [address] [address] Jul, Erythromelalgia 443.82 [facility]212 [facility] [address] Jul, [facility] [address] [facility] [address] Jul, Paresthesias 782.0 [facility]212 [facility] [address] Jun, Pain in limb 729.5 [facility]212 [facility] [address] Jun, [facility]212 [facility] [address] Jun, [facility]212 [facility] [address] Jun, Fatigue 780.79 ; [facility] Polyarthralgia 719.49 ; Paresthesia of foot 782.0 and Myalgia 729.1 [facility] [address] Jun, [facility] [address] May, [facility] [address] May, Tingling in extremities [facility] [address] May, [facility] [address] Apr, Hyperlipidemia, Other and [facility] unspecified 272.4 ; Visit for screening mammogram V76.12 ; Hypothyroidism, Unspecified 244.9 and Right carotid bruit 785.[address] Apr, Hyperlipidemia, Other and [facility] unspecified 272.4 ; Hypothyroidism, Unspecified 244.9 ; Right carotid bruit 785.9 and Visit for screening mammogram V76.[address] Nov, Chest pain 786.50 [facility] Nov, Chest wall pain 786.52 [facility] [place] [address] Nov, Vision changes 368.9 ; [facility] Hyperlipidemia, Other and unspecified 272.4 ; Dermatitis 692.9 and Potassium (K) excess 276.[address] Oct, Chest wall pain 786.52 [facility] Oct, [facility] August, Chest wall pain 786.52 [facility] Jul, [facility] Jul, Potassium (K) excess 276.7 [facility] Jul, Potassium (K) excess 276.7 [facility] Jun, [facility] Jun, Bronchitis, not specified as [facility]212 acute or chronic 490 and Upper respiratory infections of unspecified site, Acute 465.[address] May, [facility] May, Vision changes 368.9 [facility] [address] May, Vision changes 368.9 and [facility] Dermatitis 692.[address] May, [facility] May, Hyperlipidemia, Other and [facility] unspecified 272.[address] May, RUQ abdominal pain 789.01 [facility] [address] May, RUQ abdominal pain 789.01 [facility] and Right carotid bruit 785.[address] Apr, [facility] Mar, Hyperlipidemia, Other and [facility] unspecified 272.[address] Mar, [facility] Feb, Adult Wellness Exam V70.0 [facility] and Mammogram Screening V76.[address] Feb, Adult Wellness Exam V70.0 ; [facility] Hypothyroidism, Unspecified 244.9 ; Hyperlipidemia, Other and unspecified 272.4 and Urinary incontinence 788.30 [facility] [address] [place] [address] Jan, [place] [place] [address] [facility] [address] [place] [address] Jan, [facility] [address] [facility] [address] [place] [address] Jan, [facility] [address] Dec, Pre-operative cardiovascular [facility] examination V72.[address] Dec, [facility] Dec, [facility] [place]212 [address] Dec, [facility] Nov, Enthesopathy of unspecified [facility]212 site 726.90 and Cardiovascular system, Symptoms involving 785.[address] Nov, [facility] Oct, Hyperlipidemia, Other and [facility] unspecified 272.[address] Sep, [facility] Sep, [facility]212 [address] Sep, Hyperlipidemia, Other and [facility]212 unspecified 272.[address] August, Unspecified myalgia and [facility] myositis 729.1 ; Hyperlipidemia, Other and unspecified 272.4 and Urinary incontinence; unspecified 788.[address] August, [facility] August, [facility]212 [address] August, [facility]212 [address] August, Hyperlipidemia, Other and [facility] unspecified 272.[address] August, Hyperlipidemia, Other and [facility] unspecified 272.4 ; Ear pain (Otalgia) 388.70 and Allergic rhinitis, cause unspecified 477.[address] August, [facility] [id number] [place] [address] [address] August, [facility] [id number] [place] [address] [address] Jul, [facility] [address] [place] [address] [address] Jul, [facility] [id number] [place] [address] [address] Jul, [facility] [address] [place] [address] [address] Jul, Hyperlipidemia, Other and [facility] unspecified 272.4 [facility] [address] Jul, [facility] [id number] [place] [address] [address] Jul, [facility] [address] [place] [address] [address] Jun, [facility] [id number] [place] [address] [address] Jun, [facility] [id number] [place] [address] [address] Jun, [facility] [address] [place] [address] [address] Jun, [facility] [id number] [place] [address] [address] Jun, [facility] [address] [place] [address] [address] May, [facility] [address] [place] [address] [address] May, [facility] [address] [place] [address] [address] May, Headache 784.0 [facility]212 [facility] [address] May, Headache 784.0 [facility] [place] [address] [address] May, [facility]212 [facility] [address] May, [facility]212 [facility] [address] May, Herpes zoster without [facility]212 mention of complication 053.9 and Disturbance of salivary secretion 527.7 [facility] [address] Feb, [facility] [address] [facility] [address] Feb, [facility] [address] [facility] [address] Feb, [facility] [address] [facility] [address] Feb, [facility] [address] [facility] [address] Jan, [facility] [address] [facility] [address] Jan, [facility] [address] [facility] [address] Dec, [facility] [address] [facility] [address] August, [facility] [address] [facility] [address] August, [facility] [place] [address] [facility] [address] August, [facility] [address] [facility] [address] Jul, [facility] [address] [facility] [address] Jul, [facility] [address] [facility] [address] Jul, [facility] [address] [facility] [address] Apr, [facility] [address] [facility] [address] Nov, [facility] [address] [facility] [address] Nov, [facility] [address] [facility] [address] May, [facility] [address] [facility] [address] Feb, [facility] [address] [facility] [address] Oct, [facility] [address] [facility] [address] Jun, [facility] [address] [facility] [address] Apr, [facility] [address] [facility] [address] Mar, [facility]212 [facility] [address] Feb, [facility] [address] [facility] [address] [facility] May, [facility] [address] [facility] 8200 [facility] Mar, [facility] [address] [facility] 8200 [facility] Mar, [facility] [address] [facility] 8[address] [facility] Mar, [facility] [address] [facility] 8[address] [facility] Oct, [facility] [address] [facility] 8200 [facility] Oct, [facility] [address] [facility] 8200 [facility] Mar, [facility] [address] IMMUNIZATIONS No Known Immunizations SOCIAL HISTORY Never Assessed REASON FOR VISIT LATE ENTRY PLAN OF CARE VITAL SIGNS MEDICATIONS Unknown Medications RESULTS No Results PROCEDURES No Known procedures INSTRUCTIONS MEDICATIONS ADMINISTERED No Known Medications MEDICAL [...]
--- OUTSIDE RECORDS SUMMARY | 2017-05-23 10:31 | External Medical Summary ---
:1940 Author Organization [employer] Care Team Providers Name Role Phone Helga [...]
--- OUTSIDE RECORDS SUMMARY | 2017-05-23 10:31 | External Medical Summary ---
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 Active 00616111 Problem Unspecified urinary R32 Active 871031578 incontinence Problem Memory impairment R41.3 Active 538602777 Problem Bilateral carotid I77.9 Active 000030839 artery disease ALLERGIES Substance Reaction Event Type Date Status Latex anaphylaxis Drug Allergy Sep, Active sulfa anaphylaxis Drug Allergy Sep, Active Lipitor ruined her muscles Drug Allergy Sep, Active Iodine "can't handle it" Drug Allergy Sep, Active Crestor tingling in extremities Drug Allergy Sep, Active Clindamycin dizzy Drug Allergy Sep, Active SOCIAL HISTORY No smoking Hx information available PLAN OF CARE Activity Details Follow Up 4 Weeks Reason: VITAL SIGNS Weight 120.8 lbs 2016-09-15 Height 61 in 2016-09-15 BMI 22.82 kg/m2 2016-09-15 Blood pressure systolic 128 mm Hg 2016-09-15 Blood pressure diastolic 74 mm Hg 2016-09-15 MEDICATIONS Medication Instructions Dosage Frequency Start End Duration Status Date Date Ativan 0.5 MG Orally Twice a 1 tablet Sep, Active day prn anxiety 2017 Milk Thistle 175 Orally Once a 1 capsule 24h Active MG day Glucosamine Orally Once a 1 capsule 24h Active Chondr 500 day Complex Triamcinolone Externally 1 application 12h Sep, Active Acetonide 0.1 % Twice a day sparingly to 2017 affected area L-Lysine 1000 MG Orally Once a 1 tablet 24h Active day Donaldson 3 1000 MG Orally Once a 1 capsule 24h 30 day(s) Active day Probiotic - Orally Once a 1 capsule 24h Active day Biotin 5000 MCG Sublingual Once 1 tablet 24h Active a day Co Q 10 100 MG Orally Once a 1 capsule with 24h 30 day(s) Active day a meal Niacin 500 MG Orally Once a 1 capsule 24h 30 day(s) Active day Calcium, PO QD 1 tablet 24h Active Magnesium, Zinc with D3 and Vitamin D Aspirin 81 MG ORAL QD (every 1 TABLET Jul, Active day) 2010 Tylenol PM Extra Orally Once a 1 tablet at 30 day(s) Active Strength 25-500 day PRN bedtime as MG needed Lexapro 10 MG Orally Once a 1 tablet 24h Sep, 30 day(s) Active day 2016 Lorazepam 0.5 MG Orally BID- PRN 1 tablet as 30 days Active needed RESULTS No Results PROCEDURES Procedure Date Ordered Related Diagnosis Body Site OFFICE VISITEST PT September 15, 2016 IMMUNIZATIONS No Known Immunizations
--- OUTSIDE RECORDS SUMMARY | 2017-05-23 10:31 | External Medical Summary ---
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 Active 86954393 Problem Unspecified urinary R32 Active 794810567 incontinence Problem Cognitive impairment R41.89 Active 731827287 Problem MRSA (methicillin A49.02 Active 780119794 resistant Staphylococcus aureus) Problem Memory impairment R41.3 Active 899225175 Problem Bilateral carotid I77.9 Active 120974632 artery disease Problem Anxiety F41.9 Active 35351137 Problem Hyperlipidemia E78.5 Active 80192141 ALLERGIES Substance Reaction Event Type Date Status Latex anaphylaxis Drug Allergy Feb, Active sulfa anaphylaxis Drug Allergy Feb, Active Lipitor ruined her muscles Drug Allergy Feb, Active Iodine "can't handle it" Drug Allergy Feb, Active Crestor tingling in extremities Drug Allergy Feb, Active Clindamycin dizzy Drug Allergy Feb, Active SOCIAL HISTORY Never Assessed PLAN OF CARE Activity Details Follow Up prn Reason: VITAL SIGNS Weight 114.8 lbs 2017-02-16 Height 61 in 2017-02-16 BMI 21.69 kg/m2 2017-02-16 Blood pressure systolic 122 mm Hg 2017-02-16 Blood pressure diastolic 66 mm Hg 2017-02-16 MEDICATIONS Unknown Medications RESULTS No Results PROCEDURES [...]
--- OUTSIDE RECORDS SUMMARY | 2017-05-23 10:31 | External Medical Summary ---
:1940 Author Organization [employer] Care Team Providers Name Role Phone Fransisco Blanco Provider Role Unavailable Allergies No Known Allergies Problems Problem Type Condition ICD-9 Code Onset Dates Condition Status Problem Right carotid bruit 785.9 Active Problem Urinary incontinence; 788.30 Active unspecified Problem Erythromelalgia 443.82 Active Assessment Hyperlipidemia, Other and 272.4 Active unspecified Problem Hyperlipidemia, Other and 272.4 Active unspecified Problem Hypothyroidism, Unspecified 244.9 Active Medications No Known Medications Results No Known Results Summary Purpose [employer] Submission
--- OUTSIDE RECORDS SUMMARY | 2017-05-23 10:31 | External Medical Summary ---
:1940 Author Organization [employer] Care Team Providers Name Role Phone Helga Dominguez Provider Role Unavailable Allergies, Adverse Reactions, Alerts Substance Reaction Event Type Latex Info Not Available Drug Allergy sulfa anaphylaxis Drug Allergy Lipitor ruined her muscles Drug Allergy Crestor tingling in extremities Drug Allergy Clindamycin dizzy Drug Allergy Problems Problem Type Condition ICD-9 Code Onset Dates Condition Status Assessment Visit for screening mammogram V76.12 Active Assessment Postmenopausal V49.81 Active Problem Right carotid bruit 785.9 Active Problem Urinary incontinence; 788.30 Active unspecified Problem Erythromelalgia 443.82 Active Assessment Hyperlipidemia, Other and 272.4 Active unspecified Assessment Hypothyroidism, Unspecified 244.9 Active Problem Hyperlipidemia, Other and 272.4 Active unspecified Problem Hypothyroidism, Unspecified 244.9 Active Medications Medication Code Code Instructions Start End Status [place] [address]-25 1000 MG *keep on September 07, tablet at 80-90 file as pt does 2011 bedtime not need today* Orally Q HS Glucosamine NDC 33625-20 Orally as directed Chondr 500 488 [place] [address]-26 25 MG Orally bid 3 capsule 40-13 as needed Aspirin NDC 35771-24 81 MG ORAL QD July 16, 1 (one) 00-12 (every day) 2010 TABLET QD ([place]) [place] [address]-32 100 MG Orally 1 capsule 46-20 Once a day with a meal Multivitamins NDC 10939-66 Orally as directed 041 Fish Oil NDC 19659-10 1200 Orally QD July 13, 3 capsules 57-72 (Every day) 2011 Milk Thistle NDC 67838-14 - Orally as directed 505 Probiotic NDC 46488-34 - Orally as directed 256 Biotin NDC 31634-65 1000 MCG Orally 1 tablet 900 Once a day Procedures Procedure Coding System Code Date OFFICE VISITEST PT CPT-4 40728 Apr 30, 2014 Vital Signs Date/Time: Apr 30, 2014 Blood Pressure Systolic 126 mm Hg Height 61 in Weight 121.2 lbs BMI 22.90 Index Oximetry 99 % Cardiac Monitoring Heart Rate 71 /min Blood Pressure Diastolic 80 mm Hg Results No Known Results Summary Purpose [employer] Submission
--- OUTSIDE RECORDS SUMMARY | 2017-05-23 10:31 | External Medical Summary ---
:1940 Author Organization [employer] Care Team Providers Name Role Phone Fransisco [...] Medications Procedures Procedure Coding System Code Date CAROTID DUPLEX CPT-4 82611 July 28, 2014 Results No Known Results Summary Purpose [employer] Submission
--- OUTSIDE RECORDS SUMMARY | 2017-05-23 10:31 | External Medical Summary ---
:1940 Author Organization [employer] Care Team Providers Name Role Phone Fransisco Blanco Provider Role Unavailable Allergies No Known Allergies Problems Problem Type Condition ICD-9 Code Onset Dates Condition Status Problem Right carotid bruit 785.9 Active Problem Urinary incontinence; 788.30 Active unspecified Problem Erythromelalgia 443.82 Active Assessment Adult Wellness Exam V70.0 Active Problem Hyperlipidemia, Other and 272.4 Active unspecified Problem Hypothyroidism, Unspecified 244.9 Active Medications No Known Medications Procedures Procedure Coding System Code Date DXA BONE DENSITY/PERIPHERAL CPT-4 84486 Nov 27, 2014 Results Name Result Date Reference Range Unit Abnormality Flag X ray : Heel Scan (Free) Summary Purpose [employer] Submission
--- OUTSIDE RECORDS SUMMARY | 2017-05-23 10:31 | External Medical Summary ---
:1940 Author Organization [employer] Care Team Providers Name Role Phone Fransisco Blanco Provider Role Unavailable Allergies No Known Allergies Problems Problem Type Condition ICD-9 Code Onset Dates Condition Status Problem Right carotid bruit 785.9 Active Problem Urinary incontinence; 788.30 Active unspecified Problem Erythromelalgia 443.82 Active Assessment Hyperlipidemia 272.4 Active Assessment Encounter for long-term V58.69 Active (current) drug use Problem Hyperlipidemia, Other and 272.4 Active unspecified Problem Hypothyroidism, Unspecified 244.9 Active Medications No Known Medications Procedures Procedure Coding System Code Date LIVER PROFILE CPT-4 30596 October 27, 2014 Results No Known Results Summary Purpose [employer] Submission
--- OUTSIDE RECORDS SUMMARY | 2017-05-23 10:31 | External Medical Summary ---
:1940 Author Organization [employer] Care Team Providers Name Role Phone Helga Dominguez Provider Role Unavailable Allergies No Known Allergies Problems Problem Type Condition ICD-9 Code Onset Dates Condition Status Problem Right carotid bruit 785.9 Active Problem Urinary incontinence; 788.30 Active unspecified Problem Erythromelalgia 443.82 Active Assessment Visit for screening mammogram V76.12 Active Problem Hyperlipidemia, Other and 272.4 Active unspecified Problem Hypothyroidism, Unspecified 244.9 Active Medications No Known Medications Procedures Procedure Coding System Code Date COMPUTER AIDED SCR CPT-4 82793 Apr 30, 2014 BILATERAL SCR MAMMO CPT-4 02676 Apr 30, 2014 Results No Known Results Summary Purpose [employer] Submission
--- OUTSIDE RECORDS SUMMARY | 2017-05-23 10:32 | External Medical Summary ---
[...] Active unspecified Problem Erythromelalgia 443.82 Active Assessment Vaginal lesion 623.8 Active Assessment Atopic dermatitis 691.8 Active Problem Hyperlipidemia, Other and 272.4 Active unspecified Problem Hypothyroidism, Unspecified 244.9 Active Medications Medication Code Code Instructions Start End Status D[place] [address]-1 0.05 % Nov 12 application 163-30 Externally 2015 to affected Twice a day area Aspirin NDC 15201-3 81 MG ORAL QD July 2 TABLETS 100-12 (every day) 2010 Glucosamine NDC 69685-9 Orally as directed Chondr 500 2488 Complex Biotin NDC 49673-2 1000 MCG Orally 1 tablet 9900 Once a day Multivitamins NDC 14656-9 Orally as directed 2041 Milk Thistle NDC 58157-8 - Orally as directed 1505 Benadryl NDC 45226-7 25 MG Orally 3 capsule as 840-13 bid needed Niaspan NDC 99551-5 1000 MG *keep September 07, 1 tablet at 080-90 on file as pt 2011 bedtime does not need today* Orally Q HS Breo Ellipta NDC 97238-9 100-25 MCG/INH July 09 puff 859-10 Inhalation Once 2014 a day Coenzyme Q10 NDC 71159-3 100 MG Orally 1 capsule with 446-20 Once a day a meal Probiotic NDC 24900-8 - Orally as directed 0256 Fish Oil NDC 40411-5 1200 Orally QD July 11 capsules 557-72 (Every day) 2011 Procedures Procedure Coding System Code Date OFFICE VISITEST PT CPT-4 75067 Nov 12, 2014 Vital Signs Date/Time: Nov 12, 2014 Blood Pressure Systolic 118 mm Hg Height 61 in Weight 120.8 lbs BMI 22.82 Index Blood Pressure Diastolic 74 mm Hg Results No Known Results Summary Purpose [employer] Submission
--- OUTSIDE RECORDS SUMMARY | 2017-05-23 10:32 | External Medical Summary ---
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
--- OUTSIDE RECORDS SUMMARY | 2017-05-23 10:32 | External Medical Summary ---
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 Assessment Spondylosis 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region M47.812 Active without myelopathy or radiculopathy Assessment Neck pain M54.2 Active Problem Hyperlipidemia, Other and 272.4 Active unspecified Problem Hypothyroidism, Unspecified 244.9 Active Medications Medication Code Code Instructions Start End Status Dos[place] [address]-1 0.05 % Nov 12 application 163-30 Externally 2014 to affected Twice a day area Coenzyme Q10 NDC 73357-2 100 MG Orally 1 capsule with 446-20 Once a day a meal Aspirin NDC 84209-8 81 MG ORAL QD July 2 TABLETS 100-12 (every day) 2010 Probiotic NDC 66600-2 - Orally as directed 0256 Glucosamine NDC 92186-2 Orally as directed Chondr 500 2488 Complex Niaspan NDC 60827-5 1000 MG *keep September 07, 1 tablet at 080-90 on file as pt 2011 bedtime does not need today* Orally Q HS VESIcare NDC 82126-2 10 MG Orally Jan 26, 1 tablet 283-30 Once a day 2014 Benadryl NDC 90499-1 25 MG Orally 3 capsule as 840-13 bid needed Milk Thistle NDC 20587-6 - Orally as directed 1505 Fish Oil NDC 88987-1 1200 Orally QD July 3 capsules 557-72 (Every day) 2011 [place] [address]-6 Orally as directed 2040 Ativan NDC 14408-2 0.5 MG Orally Jan 26 tablet 937-60 Twice a day prn 2014 anxiety Breo Ellipta NDC 97933-4 100-25 MCG/INH July 09 puff 859-10 Inhalation Once 2014 a day Mobic NDC 12321-4 15 MG Orally Jan 26 tablet 030-01 Once a day 2014 Biotin NDC 29933-9 1000 MCG Orally 1 tablet 9900 Once a day Procedures Procedure Coding System Code Date SPINE CERVICAL CPT-4 46572 Jan 26, 2015 CBC CPT-4 45071 Jan 26, 2015 URINALYSIS CPT-4 52120 Jan 26, 2015 RA FACTOR CPT-4 78559 Jan 26, 2015 SED RATE AUTOMA CPT-4 00936 Jan 26, 2015 OFFICE VISITEST PT CPT-4 23531 Jan 26, 2015 Influenza (6 months to Adult) CPT-4 59408 Jan 26, 2015 Vital Signs Date/Time: Jan 26, 2015 Blood Pressure Systolic 122 mm Hg Height 61 in Weight 121 lbs BMI 22.86 Index Blood Pressure Diastolic 60 mm Hg Results Name Result Date Reference Range Unit Abnormality Flag X ray : Cervical spine 2 or 3 views Immunizations Vaccine Administration Date Influenza (6 months to Adult) Jan 26, 2015 Summary Purpose [employer] Submission
--- OUTSIDE RECORDS SUMMARY | 2017-05-23 10:32 | External Medical Summary ---
:1940 Author Organization [facility] Address [address] [place] [address] Care Team Providers Name Role Phone Fransisco Blanco Unavailable Unavailable PROBLEMS Type Condition ICD9-CM [id number] Onset Condition SNOMED Code Code Code Dates Status Problem Unspecified E03.9 Active 95553691 hypothyroidism Problem Erythromelalgia I73.81 Active 24541028 Problem Unspecified urinary R32 Active 250484652 incontinence Problem Cervical disc M50.90 Active 539563199 disease Problem Cognitive impairment R41.89 Active 186465642 Problem Memory impairment R41.3 Active 172923978 Problem Bilateral carotid I77.9 Active 163005813 artery disease Problem Anxiety F41.9 Active 47187224 Problem Hyperlipidemia E78.5 Active 49353975 ALLERGIES Substance Reaction Event Type Date Status Latex anaphylaxis Drug Allergy Apr, Active sulfa anaphylaxis Drug Allergy Apr, Active Lipitor ruined her muscles Drug Allergy Apr, Active Iodine "can't handle it" Drug Allergy Apr, Active Crestor tingling in extremities Drug Allergy Apr, Active Clindamycin dizzy Drug Allergy Apr, Active SOCIAL HISTORY Never Assessed PLAN OF CARE Activity Details Follow Up Call for results in 3 days Reason: VITAL SIGNS Weight 118 lbs 2017-04-12 Height 61 in 2017-04-12 Heart Rate 69 /min 2017-04-12 BMI 22.29 kg/m2 2017-04-12 Blood pressure systolic 106 mm Hg 2017-04-12 Blood pressure diastolic 72 mm Hg 2017-04-12 MEDICATIONS Unknown Medications RESULTS No Results PROCEDURES [...]
--- OUTSIDE RECORDS SUMMARY | 2017-05-23 10:32 | External Medical Summary ---
:1940 Author Organization [facility] Address [address] [place] [address] Care Team Providers Name Role Phone Fransisco Blanco Unavailable Unavailable PROBLEMS Type Condition ICD9-CM [id number] Onset Condition SNOMED Code Code Code Dates Status Problem Unspecified E03.9 Active 80921500 hypothyroidism Problem Erythromelalgia I73.81 Active 21018093 Problem Unspecified urinary R32 Active 804940557 incontinence Problem Cognitive impairment R41.89 Active 899907539 Problem MRSA (methicillin A49.02 Active 279150342 resistant Staphylococcus aureus) Problem Memory impairment R41.3 Active 210540987 Problem Bilateral carotid I77.9 Active 833741096 artery disease Problem Anxiety F41.9 Active 71574300 Problem Hyperlipidemia E78.5 Active 47894428 ALLERGIES No Information SOCIAL HISTORY Never Assessed [...]
--- OUTSIDE RECORDS SUMMARY | 2017-05-23 10:32 | External Medical Summary | Continuity of Care Document ---
:[address] [facility] Allergies Active Description Code Type Severity Reaction Onset Reported/ Identified Relationship Clinical to Patient Status Yes No Known Drug 09/02/2011 Drug Aller Allergies gy Yes No Known Drug N/A N/A 09/02/2011 Drug Aller Allergies gy Medications There is no data. Problems Date Dx Coded Attending Type Code Diagnosis Diagnosed By 01/11/2012 Final 433.10 CAROTID OCCL S INFARCT 01/11/2012 Final 433.30 MULT PREC OCCL S INFARCT 06/16/2013 Fransisco Herrera DO Final 782.0 SKIN SENSATION A DISTURB Procedures There is no data. Results There is no data. Encounters ACCT No. Visit Discharge Status Pt. Type Provider Facility Loc./Unit Complaint Date/Time [id number] 06/16/2013 06/16/2013 DIS Emergency [facility] TERM 0 20:41:00 22:00:00 Fransisco PRICE [facility] [id number] 01/11/2012 01/11/2012 CLS Outpatient 4 12:15:00 23:59:59
--- OUTSIDE RECORDS SUMMARY | 2017-05-23 10:32 | External Medical Summary ---
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
--- OUTSIDE RECORDS SUMMARY | 2017-05-23 10:32 | External Medical Summary ---
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 Assessment Acute pansinusitis, recurrence not J01.40 Active specified Assessment Eustachian tube dysfunction, left H69.82 Active Problem Hyperlipidemia, Other and 272.4 Active unspecified Problem Hypothyroidism, Unspecified 244.9 Active Medications Medication Code System Code Instructions Start Date End Date Status Dosage Cefdinir [facility] 09401-563 300 MG Orally Mar 11, 2 capsule 0-06 Once a day 2014 PredniSONE [facility] 14254-826 10 MG Orally Once Mar 11, 3 po qd x 3 7-20 a day 2014 days, then 2 po qd x 3 days, then 1 po qd x 3 days, then off Procedures Procedure Coding System Code Date OFFICE VISITEST PT CPT-4 07353 Mar 11, 2015 Vital Signs Date/Time: Mar 11, 2015 Blood Pressure Systolic 125 mm Hg Height 61 in Weight 126 lbs Oximetry 99 % Cardiac Monitoring Heart Rate 68 /min Temperature 98.1 F Blood Pressure Diastolic 83 mm Hg BMI 23.80 Index Results No Known Results Summary Purpose [employer] Submission
--- OUTSIDE RECORDS SUMMARY | 2017-05-23 10:32 | External Medical Summary ---
:1940 Author Organization [facility] Address [address] [place] [address] Care Team Providers Name Role Phone Fransisco Blanco Unavailable Unavailable PROBLEMS Type Condition ICD9-CM [id number] Onset Condition SNOMED Code Code Code Dates Status Problem Unspecified E03.9 Active 82398648 hypothyroidism Problem Erythromelalgia I73.81 Active 09139943 Problem Unspecified urinary R32 Active 368053443 incontinence Problem Cervical disc M50.90 Active 988190177 disease Problem Cognitive impairment R41.89 Active 240150980 Problem Memory impairment R41.3 Active 937801225 Problem Bilateral carotid I77.9 Active 622166391 artery disease Problem Anxiety F41.9 Active 24148672 Problem Hyperlipidemia E78.5 Active 01943831 ALLERGIES Substance Reaction Event Type Date Status Latex anaphylaxis Drug Allergy Mar, Active sulfa anaphylaxis Drug Allergy Mar, Active Lipitor ruined her muscles Drug Allergy Mar, Active Iodine "can't handle it" Drug Allergy Mar, Active Crestor tingling in extremities Drug Allergy Mar, Active Clindamycin dizzy Drug Allergy Mar, Active SOCIAL HISTORY Never Assessed PLAN OF CARE Activity Details Follow Up prn Reason: VITAL SIGNS Weight 117.8 lbs 2017-03-15 Height 61 in 2017-03-15 BMI 22.26 kg/m2 2017-03-15 Blood pressure systolic 126 mm Hg 2017-03-15 Blood pressure diastolic 74 mm Hg 2017-03-15 MEDICATIONS Medication Instructions Dosage Frequency Start End Date Duration Status Date Prevagen 10 MG Active Tumeric TAKE PO Qd 1 24h Active DIRECTED PredniSONE 10 Orally Once a day 3 po qd 24h Mar, days Active MG for 4 2017 days, then 2 po qd x 4 days, then 1 po qd for 4 days, then off RESULTS Name Result Date Reference Range X ray : Cervical spine 2 or 3 views 2017-03-15 PROCEDURES Procedure Date Ordered Result Body Site SPINE CERVICAL Mar 15, 2017 EKG WITH INTERPRETAT Mar 15, 2017 IMMUNIZATIONS No Known Immunizations MEDICAL (GENERAL) HISTORY [...]
--- NOTE | 2017-05-23 10:35 | XRay Report ---
INDICATION: clearance PROCEDURE: CHEST 2-VIEWS UPRIGHT (PA & LAT) Encounter: Initial COMPARISON: None FINDINGS: The lungs are clear without evidence of focal abnormal airspace opacity. There is no pleural effusion or pneumothorax. The heart size, mediastinal contours and pulmonary vascularity are within normal limits. IMPRESSION: No acute cardiopulmonary disease. .
--- NOTE | 2017-05-23 12:35 | Emergency Department Report ---
General Adult HPI - General Chief complaint: Medical Clearance Stated complaint: gen wetzel Time Seen by Provider: 05/23/17 09:53 - History of Present Illness HPI narrative: 76-year-old female presents with confusion and agitation. She is brought in for medical clearance prior to admission to [facility]. She is very resentful and angry stating that she feels like she's been kidnapped. She does not want to be forced to go. I did offer to do a Mini-Mental status to determine her coherency and competency, she had very angry that I was playing games. She was unable to answer several questions and then refused to continue. - Related Data Home Medications Medication Instructions Recorded Confirmed Acetaminophen/Diphenhydramine 1 tab PO HS PRN 05/23/17 05/23/17 [Acetaminophen Pm Caplet] Aspirin [Aspirin EC] 81 mg PO DAILY 05/23/17 05/23/17 Calcium Carb/D3/Magnesium/Zinc 1 tab PO DAILY 05/23/17 05/23/17 [Royal Mag Zinc + D3 Tablet] Escitalopram [Lexapro] 10 mg PO DAILY PRN 05/23/17 05/23/17 Flaxseed Oil 1,000 mg PO DAILY 05/23/17 05/23/17 Folic Acid/Multivit-Min/Lutein 1 tab PO DAILY 05/23/17 05/23/17 [Centrum Silver Chewable Tablet] Glucosa Rodas 2Kcl/Chondroitin Rodas 1 tab PO DAILY 05/23/17 05/23/17 [Glucosamine Chondroitin Caplet] LORazepam [Ativan] 0.5 mg PO BID PRN 05/23/17 05/23/17 Lysine HCl [l-Lysine] 1,000 mg PO DAILY PRN 05/23/17 05/23/17 Milk Thistle 175 mg PO DAILY 05/23/17 05/23/17 Niacin 500 mg PO DAILY 05/23/17 05/23/17 [place]-3/Dha/Epa/Fish Oil [Fish Oil 1,000 mg PO TID 05/23/17 05/23/17 1,000 mg Softgel] Prevagen 10 mg PO DAILY 05/23/17 05/23/17 Turmeric Root Extract [Turmeric] 500 mg PO DAILY 05/23/17 05/23/17 Ubidecarenone/Vit E Acet [Co Q-10 100 mg PO DAILY 05/23/17 05/23/17 100 mg Softgel] Vitamin B Complex Vit C No.4 150 mg PO DAILY 05/23/17 05/23/17 [Super B Complex] Allergies Allergy/AdvReac Type Severity Reaction Status Date / Time latex Allergy Severe Anaphylactic Verified 05/23/17 10:23 Shock Sulfa (Sulfonamide Allergy Severe Anaphylactic Verified 05/23/17 10:23 Antibiotics) Shock atorvastatin [From Lipitor] Allergy Verified 05/23/17 10:23 clindamycin Allergy Dizziness Verified 05/23/17 10:23 iodine Allergy Verified 05/23/17 10:23 rosuvastatin [From Crestor] Allergy Verified 05/23/17 10:23 Review of Systems All systems: reviewed and negative except as stated PFSH Patient Stated Medical History Hx Incontinence Yes - Social History Smoking status: Unknown if ever smoked Substance use type: does not use Physical Exam - Limitations Limitations: no limitations - Normal Exams: Head:: Normocephalic without trauma Eyes:: Pupils are PERRLA w/ EOMI Chest/Respirations:: Clear all lambert, with good airflow, and symmetry bilaterally Cardiovascular:: Regular rate and rhythm, without murmur or gallop, Pulses 2+ all extremities, capillary refill, <2 seconds all extremities Abdomen:: Bowel sounds positive, soft, non-tender, non-distended, no hepatosplenomegaly, masses or bruits noted Neurological:: Patient is alert, cranial nerves, motor/sensory/cerebellar, exams w/o gross deficits, to observation - Neurological Exam Neurological exam: Present: alert, CN II-XII intact, normal gait, reflexes normal. Absent: oriented X3, motor sensory deficit - Psychiatric Psychiatric exam: Present: agitated, anxious, other (frustrated and aggressive.) Course Vital Signs Temperature 98.1 F 05/23/17 09:30 Pulse Rate 94 05/23/17 09:30 Respiratory Rate 20 05/23/17 09:30 Blood Pressure 163/91 H 05/23/17 09:30 Pulse Oximetry 97 05/23/17 09:30 Temperature 98.1 F 05/23/17 09:30 Pulse Rate 94 05/23/17 09:30 Respiratory Rate 20 05/23/17 09:30 Blood Pressure 163/91 H 05/23/17 09:30 Pulse Oximetry 97 05/23/17 09:30 Medical Decision Making - MDM Narrative Medical decision making narrative: CBC, CMP, UA and drug screen, EKG and chest x-ray all returned normal. Patient is medically cleared to go to [facility] for treatment. - Differential Diagnosis psychosis, delirium, dementia - Medical Records Medical records reviewed: Yes: I reviewed the patient's medical records. - Lab Data Lab results reviewed: Yes: I reviewed the patient's lab results. Result diagrams: 05/23/17 10:04 05/23/17 10:04 Lab Results 05/23/17 05/23/17 05/23/17 Range/Units 10:04 10:04 10:07 WBC 11.0 (4.5-11.0) T/MM3 RBC 4.83 (4.00-5.20) M/MM3 Hgb 15.6 (12-16) GM/DL Hct 47.3 H (36-46) % MCV 97.9 (80-100) UM3 MCH 32.3 (26-34) UUG MCHC 33.0 (31-37) GM/DL RDW Std Deviation 44.4 (36.9-50.2) FL Plt Count 289 (130-400) T/MM3 MPV 9.3 L (9.4-12.4) UM3 Immature Gran % (Auto) 0.2 (0.0-0.5) % Neut % (Auto) 73.9 H (33-66) % Lymph % (Auto) 17.8 L (23-45) % Wilkin % (Auto) 6.1 (0-9.0) % Eos % (Auto) 1.5 (0-4) % Baso % (Auto) 0.5 (0-2) % Neut # (Auto) 8.1 H (1.8-7.7) T/MM3 Lymph # (Auto) 2.0 (1-4.8) T/MM3 Wilkin # (Auto) 0.7 (0-0.8) T/MM3 Eos # (Auto) 0.2 (0-0.5) T/MM3 Baso # (Auto) 0.1 (0-0.2) T/MM3 Abs Immat Gran (auto) 0.02 (0.00-0.03) T/MM3 Turbidity < 20 (0-20) Sodium 146 H (134-144) MEQ/L Potassium 4.2 (3.6-5) MEQ/L Chloride 107 (98-107) MEQ/L Carbon Dioxide 27 (22-30) MEQ/L Anion Gap 12 (5-15) MEQ/L BUN 17.0 (7-17) MG/DL Creatinine 1.0 (0.7-1.2) MG/DL GFR Calculation 54 BUN/Creatinine Ratio 17 (6-26) RATIO Glucose 109 (65-110) MG/DL Calculated Osmolality 284 H (261-280) MOSM/KG Calcium 9.7 (8.4-10.2) MG/DL Total Bilirubin 0.50 (0.20-1.30) MG/DL Icterus Index < 2 (0-7) AST 25 (14-36) U/L ALT 36 (9-52) U/L Alkaline Phosphatase 78 (38-126) U/L Total Protein 7.7 (6.3-8.2) G/DL Albumin 4.6 (3.5-5.0) G/DL Globulin 3.1 (2.4-3.6) G/DL Albumin/Globulin Ratio 1.5 (1.1-2.2) RATIO TSH 2.94 (0.47-4.68) MIU/L Specimen Hemolysis < 15 (0-25) Ur Collection Type Urine, void-cc/notcc Urine Color Yellow (YELLOW) Urine Clarity Clear Urine pH 7.0 (5.0-8.0) Ur Specific [place] 1.015 (1.015-1.025) Urine Protein Negative (NEGATIVE) Urine Glucose (UA) Negative (NEGATIVE) Urine Ketones Negative (NEGATIVE) Urine Occult Blood Negative (NEGATIVE) Urine Nitrate Negative (NEGATIVE) Urine Bilirubin Negative (NEGATIVE) Urine Urobilinogen 0.2 (NORMAL) EU/DL Ur Leukocyte Esterase Trace A (NEGATIVE) Urinalysis Comment Microscopic not ind. Salicylates < 1.0 L (2-20) MG/DL Urine Opiates Screen ng/mL Ur Oxycodone Screen ng/mL Urine Methadone Screen ng/mL Ur Propoxyphene Screen ng/mL Acetaminophen < 10 L (10-30) UG/ML Ur Barbiturates Screen ng/mL U Tricyclic Antidepress ng/mL Ur Phencyclidine Scrn ng/mL Ur Amphetamines Screen ng/mL U Methamphetamines Scrn ng/mL U Benzodiazepines Scrn ng/mL Urine Cocaine Screen ng/mL U Cannabinoids Screen ng/mL Alcohol, Quantitative <10 (<10) MG/DL 05/23/17 Range/Units 10:07 WBC (4.5-11.0) T/MM3 RBC (4.00-5.20) M/MM3 Hgb (12-16) GM/DL Hct (36-46) % MCV (80-100) UM3 MCH (26-34) UUG MCHC (31-37) GM/DL RDW Std Deviation (36.9-50.2) FL Plt Count (130-400) T/MM3 MPV (9.4-12.4) UM3 Immature Gran % (Auto) (0.0-0.5) % Neut % (Auto) (33-66) % Lymph % (Auto) (23-45) % Wilkin % (Auto) (0-9.0) % Eos % (Auto) (0-4) % Baso % (Auto) (0-2) % Neut # (Auto) (1.8-7.7) T/MM3 Lymph # (Auto) (1-4.8) T/MM3 Wilkin # (Auto) (0-0.8) T/MM3 Eos # (Auto) (0-0.5) T/MM3 Baso # (Auto) (0-0.2) T/MM3 Abs Immat Gran (auto) (0.00-0.03) T/MM3 Turbidity (0-20) Sodium (134-144) MEQ/L Potassium (3.6-5) MEQ/L Chloride (98-107) MEQ/L Carbon Dioxide (22-30) MEQ/L Anion Gap (5-15) MEQ/L BUN (7-17) MG/DL Creatinine (0.7-1.2) MG/DL GFR Calculation BUN/Creatinine Ratio (6-26) RATIO Glucose (65-110) MG/DL Calculated Osmolality (261-280) MOSM/KG Calcium (8.4-10.2) MG/DL Total Bilirubin (0.20-1.30) MG/DL Icterus Index (0-7) AST (14-36) U/L ALT (9-52) U/L Alkaline Phosphatase (38-126) U/L Total Protein (6.3-8.2) G/DL Albumin (3.5-5.0) G/DL Globulin (2.4-3.6) G/DL Albumin/Globulin Ratio (1.1-2.2) RATIO TSH (0.47-4.68) MIU/L Specimen Hemolysis (0-25) Ur Collection Type Urine Color (YELLOW) Urine Clarity Urine pH (5.0-8.0) Ur Specific [place] (1.015-1.025) Urine Protein (NEGATIVE) Urine Glucose (UA) (NEGATIVE) Urine Ketones (NEGATIVE) Urine Occult Blood (NEGATIVE) Urine Nitrate (NEGATIVE) Urine Bilirubin (NEGATIVE) Urine Urobilinogen (NORMAL) EU/DL Ur Leukocyte Esterase (NEGATIVE) Urinalysis Comment Salicylates (2-20) MG/DL Urine Opiates Screen Negative ng/mL Ur Oxycodone Screen Negative ng/mL Urine Methadone Screen Negative ng/mL Ur Propoxyphene Screen Negative ng/mL Acetaminophen (10-30) UG/ML Ur Barbiturates Screen Negative ng/mL U Tricyclic Antidepress Negative ng/mL Ur Phencyclidine Scrn Negative ng/mL Ur Amphetamines Screen Negative ng/mL U Methamphetamines Scrn Negative ng/mL U Benzodiazepines Scrn Negative ng/mL Urine Cocaine Screen Negative ng/mL U Cannabinoids Screen Negative ng/mL Alcohol, Quantitative (<10) MG/DL - Radiology Data Radiology results reviewed: Yes: I reviewed the patient's radiology results. Disposition Clinical Impression: Agitation, Confusion Disposition: 67 To [facility] Condition: Stable Prescriptions: No Action LORazepam [Ativan] 0.5 mg PO BID PRN PRN Reason: Prn Orders Calcium Carb/D3/Magnesium/Zinc [Royal Mag Zinc + D3 Tablet] 1 tab PO DAILY Milk Thistle 175 mg PO DAILY Niacin 500 mg PO DAILY Ubidecarenone/Vit E Acet [Co Q-10 100 mg Softgel] 100 mg PO DAILY Lysine HCl [l-Lysine] 1,000 mg PO DAILY PRN PRN Reason: Prn Orders Glucosa Rodas 2Kcl/Chondroitin Rodas [Glucosamine Chondroitin Caplet] 1 tab PO DAILY Vitamin B Complex Vit C No.4 [Super B Complex] 150 mg PO DAILY Aspirin [Aspirin EC] 81 mg PO DAILY Folic Acid/Multivit-Min/Lutein [Centrum Silver Chewable Tablet] 1 tab PO DAILY [place]-3/Dha/Epa/Fish Oil [Fish Oil 1,000 mg Softgel] 1,000 mg PO TID Turmeric Root Extract [Turmeric] 500 mg PO DAILY Prevagen 10 mg PO DAILY Escitalopram [Lexapro] 10 mg PO DAILY PRN PRN Reason: Prn Orders Flaxseed Oil 1,000 mg PO DAILY Acetaminophen/Diphenhydramine [Acetaminophen Pm Caplet] 1 tab PO HS PRN PRN Reason: Prn Orders Referrals: Fransisco Blanco [Family Provider] - Time of Disposition: 12:35 - Seen By: physician
[2017-05-23] MEDS ORDERED: LORazepam 0.5 MG TABLET PO PRN (14:43)
[2017-05-23] MEDS ORDERED: HALOPERIDOL 0.5 MG TABLET PO PRN (14:43)
[2017-05-23] MEDS ORDERED: HALOPERIDOL 5 MG/ML INJECTION IM PRN (14:43)
[2017-05-23 15:44] VITALS: BMI 23.0
[2017-05-23] MEDS: LORazepam INTENSOL 1mg/0.5ml ORAL LIQUID PO PRN (23:40)
--- NOTE | 2017-05-24 08:08 | History & Physical Report ---
History of Present Illness Date: 05/24/17 Chief complaint: confusion and agitation HPI: Patient admitted to [facility] due to increasing problems with confusion. Children are concerned regarding her mental state per outside records. Patient is angry that she is here. In review of recent office note with her PCP, patient has had marked stress with recent CVA of her . She admits that she feels confused. She's also had increased anxiety and difficulty functioning. Review of Systems All systems PM: 10-point ROS was reviewed, no additional remarkable complaints except (anger and frustration) Past Medical History Medical History Hyperlipidemia Hypothyroidism Urinary incontinence Right carotid artery stenosis (Doppler 05/26 showing 50-69% stenosis) Anxiety Cervical disc disease Surgical History: Hysterectomy with BSO 1966, right upper arm cyst removed 1974 , left carotid endarterectomy-Dr. Fang 11/19/09, colonoscopy-normal (Dr. Overton ) 02/06/12, negative Cardiolite stress test 11/23/12 Family History: Father-decreased to 65 [place], CAD Mother- age 72 pancreatic cancer Sister.-diabetes Brother-overweight Family History Updates: Information taken from PCP office note - Social History Smoking status: Unknown if ever smoked Medications Home Medications Medication Instructions Recorded Confirmed Type Acetaminophen/Diphenhydramine 1 tab PO HS PRN 05/23/17 05/23/17 History [Acetaminophen Pm Caplet] Aspirin [Aspirin EC] 81 mg PO DAILY 05/23/17 05/23/17 History Calcium Carb/D3/Magnesium/Zinc 1 tab PO DAILY 05/23/17 05/23/17 History [Royal Mag Zinc + D3 Tablet] Escitalopram [Lexapro] 10 mg PO DAILY PRN 05/23/17 05/23/17 History Flaxseed Oil 1,000 mg PO DAILY 05/23/17 05/23/17 History Folic Acid/Multivit-Min/Lutein 1 tab PO DAILY 05/23/17 05/23/17 History [Centrum Silver Chewable Tablet] Glucosa Rodas 2Kcl/Chondroitin Rodas 1 tab PO DAILY 05/23/17 05/23/17 History [Glucosamine Chondroitin Caplet] LORazepam [Ativan] 0.5 mg PO BID PRN 05/23/17 05/23/17 History Lysine HCl [l-Lysine] 1,000 mg PO DAILY PRN 05/23/17 05/23/17 History Milk Thistle 175 mg PO DAILY 05/23/17 05/23/17 History Niacin 500 mg PO DAILY 05/23/17 05/23/17 History [place]-3/Dha/Epa/Fish Oil [Fish Oil 1,000 mg PO TID 05/23/17 05/23/17 History 1,000 mg Softgel] Prevagen 10 mg PO DAILY 05/23/17 05/23/17 History Turmeric Root Extract [Turmeric] 500 mg PO DAILY 05/23/17 05/23/17 History Ubidecarenone/Vit E Acet [Co Q-10 100 mg PO DAILY 05/23/17 05/23/17 History 100 mg Softgel] Vitamin B Complex Vit C No.4 150 mg PO DAILY 05/23/17 05/23/17 History [Super B Complex] Allergies Allergy/AdvReac Type Severity Reaction Status Date / Time latex Allergy Severe Anaphylactic Verified 05/23/17 10:23 Shock Sulfa (Sulfonamide Allergy Severe Anaphylactic Verified 05/23/17 10:23 Antibiotics) Shock atorvastatin [From Lipitor] Allergy Verified 05/23/17 10:23 clindamycin Allergy Dizziness Verified 05/23/17 10:23 iodine Allergy Verified 05/23/17 10:23 rosuvastatin [From Crestor] Allergy Verified 05/23/17 10:23 Exam Vital Signs: Temperature 98.2 F 05/24/17 00:00 Pulse Rate 88 05/24/17 00:00 Respiratory Rate 20 05/24/17 00:00 Blood Pressure 71/54 05/24/17 00:00 Pulse Oximetry 96 05/24/17 00:00 Height/Weight/BMI: Height 1.52 m Weight 53.4 kg Body Mass Index 23.0 Results - Labs CBC & Chem 7: 05/23/17 10:04 05/23/17 10:04 Labs: Laboratory Tests 05/23/17 05/23/17 10:04 10:07 Salicylates < 1.0 L Urine Opiates Screen Negative Ur Oxycodone Screen Negative Urine Methadone Screen Negative Ur Propoxyphene Screen Negative Acetaminophen < 10 L Ur Barbiturates Screen Negative U Tricyclic Antidepress Negative Ur Phencyclidine Scrn Negative Ur Amphetamines Screen Negative U Methamphetamines Scrn Negative U Benzodiazepines Scrn Negative Urine Cocaine Screen Negative U Cannabinoids Screen Negative Alcohol, Quantitative <10 - Imaging and Cardiology Chest x-ray Additional comments: Date of Exam: 05/23/17 INDICATION: clearance PROCEDURE: CHEST 2-VIEWS UPRIGHT (PA & LAT) FINDINGS: The lungs are clear without evidence of focal abnormal airspace opacity. There is no pleural effusion or pneumothorax. The heart size, mediastinal contours and pulmonary vascularity are within normal limits. IMPRESSION: No acute cardiopulmonary disease. Assessment and Plan Assessment and Plan: Assessment Cognitive impairment with increasing agitation Hypernatremia-POA Hyperlipidemia Hypothyroidism Urinary incontinence Right carotid artery stenosis (Doppler 05/26 showing 50-69% stenosis) Anxiety Cervical disc disease Plan Agree with admissions to [facility] for further psychiatric evaluation and treatment and to provide a safe environment. Appears medically stable at this time. We will continue to follow patient with you throughout her stay. Thank you for the consult. Care to return to Dr. Fransisco Blanco on discharge. Resuscitation Status: Full Code - Physician Narrative Physician: Loren Rea MD Narrative: Date: 05/24/17 Time: 1999 I have independently evaluated and examined this patient. I reviewed the chart, the patient's history, and the FIRE LOSS PREVENTION ENGINEER/PA's documented findings as above. We discussed and formulated the assessment and plan as above with additions as below: Mrs. Padilla was seen in the day room early this evening. She complained that she simply wanted to go home and didn't understand why she couldn't spend the night with her . She reports that she has no medical problems and denied surgeries documented in Dr. Blanco's notes although subsequently acknowledged having had a hysterectomy. She did not address recent stresses. 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 Otherwise normal. Chest x-ray reviewed by myself-NAD EKG also reviewed-low voltage in the limb leads, right bundle branch block, sinus rhythm. Office records sent by Dr. Blanco briefly reviewed-increasing confusion described in the office and vital family members per record report. Mild hypernatremia could suggest minor dehydration-monitor. Supportive care to be provided during assessment. Hospital Course Summary Disclaimer: The visit summary below is not to be considered part of the above Progress Note.
[2017-05-24] MEDS: ASPIRIN *EC* 81 MG TABLET PO SCH (08:49)
[2017-05-24] MEDS: PREVAGEN PO SCH (10:36)
[2017-05-24] MEDS: LORazepam INTENSOL 1mg/0.5ml ORAL LIQUID PO PRN ×3 (11:15→22:00)
[2017-05-24] MEDS ORDERED: LORazepam 0.5 MG TABLET PO PRN (12:14)
[2017-05-24] MEDS ORDERED: OLANZapine INJ 10 MG VIAL IM PRN (15:08)
[2017-05-24] MEDS ORDERED: OLANZapine ODT 5 MG TABLET PO PRN (15:08)
--- NOTE | 2017-05-24 16:29 | 24 Hour Neuropsychiatic Eval ---
Date of Admission: 05/23/17 12:37 Chief complaint: SI, agitation reported by [email or web address] History of Present Illness: Patient is a 76-year-old , retired female who was admitted to [facility] on 05/23/[place] due to concerns from her family. Family reports cognitive issues though patient was living at home and her was in [place]. On interview, patient is oriented to city but little else. She is very frustrated with her family and believes her son and DIL are plotting to get rid of her because she is too much of a burden on them. She lives independently and was reportedly still driving, she likes going on walks and gardening. Patient has made multiple suicidal statements to staff since admission though it does not appear these are persistent. She made a remark about someone else slitting her throat but she denies plan to me. She says she would rather than stay on this unit but also denies plan/intent to harm herself here on the unit. She denies HI or AVH. She does complain of difficulty with words coming out the wrong way and this happened during the interview as well. She does not have any insight into her memory problems. She denies change in sleep, ora appetite. She reports feeling well physically. She denies any past psychiatric history other than she is unsure if she has ever taken antidepressants. She denies hx of suicide attempts or psych hospitalizations. She denies a past history of symptoms consistent with aby. Last night, patient grabbed staff member's finger and wrenched it leading to a spiral fracture. She is very particular about her things and escalates at times. Depression: Crying Spells Psychosis: Delusions Dementia: Memory Impairment, Aphasia [facility] Patient Stated Medical History Hx Incontinence Yes Panic Disorder No Surgical History: Hysterectomy with BSO 1966, right upper arm cyst removed 1974 , left carotid endarterectomy-Dr. Fang 11/19/09, colonoscopy-normal (Dr. vOerton ) 02/06/12, negative Cardiolite stress test 11/23/12 Family History: Father and brother: alcoholism - Social History Smoking status: Former smoker Substance use type: does not use Alcohol intake frequency: does not drink Housing: house Household members: none Current occupational status: retired Previous occupational history: worked at [employer] for many years Does patient use chewing tobacco?: No Social history: Patient is and her lives in [place]. Her and son are DPOAs. She worked for [employer] for many years and is proud of her career. Strengths: Physically mobile, enjoys many activities, has supportive family, able to express self verbally Review of Systems All systems: reviewed and no additional remarkable complaints except as stated - Neurological Neurological: Present: memory loss, other (aphasia, mild) - Psychiatric Psychiatric: Present: as per HPI, behavioral changes, paranoia (towards son) Mental Status Exam Vitals: Last Vital Signs Temp 97.7 F 05/24/17 16:00 Pulse 82 05/24/17 16:00 Resp 18 05/24/17 16:00 BP 119/58 05/24/17 16:00 Pulse Ox 96 05/24/17 16:00 Height: 1.52 m Weight: 53.4 kg - Mental Status Exam Muscle Strength/Tone: Normal Dressing: Casual Grooming: Fair Attitude: Guarded, Defensive Motor Activity: Restless (at times) Eye Contact: Good Speech: Normal Volume: Normal Rhythm: Appropriate Rhythm Sensory: Alert Orientation: Disoriented to time, Disoriented to situation, Oriented to person Mood: Angry Affect: Angry, Sad (about hospitalization, family) Rate of Thoughts: Appropriate Rate Thought Organization: Circumstantial, Tangential (at times) Associations: Illogical Abstract Reasoning: Poor abstract reasoning Thought Content: Delusions (towards son and DIL), Ruminations, Paranoia Perception/Psychotic: Perception Normal Language: Naming Intact Fund of Knowledge: Other (Decreased from premorbid baseline) Memory: Poor-recent Suicidal Ideation: Intermittent Homicidal Ideation: Denies Insight: Impaired Judgement: Impaired Impulse Control: Poor - Laboratory Result Diagrams: 05/23/17 10:04 05/23/17 10:04 Assessment and Plan (1) Major neurocognitive disorder Problem details: with behavioral disturbance, Alzheimer's suspected, moderate Current visit: Yes Status: Acute Admit to [facility] for psychiatric evaluation and stabilization. Maintain safety and elopement precautions. Hold many of home supplements. Will start Zyprexa 2.5mg PO with dinner and monitor response. Standard labs on admission: CBC, CMP, TSH, UA, Vitamin B12 and folate Consult hospitalist for optimization of medical comorbidities. Patient will likely need placement after discharge.
[2017-05-24] MEDS: OLANZapine ODT 5 MG TABLET PO SCH (18:11)
[2017-05-25] MEDS: ASPIRIN *EC* 81 MG TABLET PO SCH ×2 (08:10→11:38)
[2017-05-25] MEDS: PREVAGEN PO SCH (08:10)
[2017-05-25] MEDS: LORazepam INTENSOL 1mg/0.5ml ORAL LIQUID PO PRN ×2 (11:37→22:06)
--- NOTE | 2017-05-25 13:14 | Neuropsych Progress Note ---
Generations Subjective Date: 05/25/17 - Sujective/Severity of Illness Medications: Aspirin (Ecotrin) 81 mg PO DAILY [facility] Last Admin: 05/25/17 11:38 Dose: 81 mg Haloperidol (Haldol) 0.5 mg PO Q6H PRN PRN Reason: Extreme agitation Haloperidol Lactate (Haldol) 0.5 mg IM Q6H PRN PRN Reason: Extreme agitation Lorazepam (Ativan Inj) 1 mg IM Q6H PRN PRN Reason: Extreme agitation Lorazepam (Ativan Intensol) 1 mg PO Q6H PRN Last Admin: 05/25/17 11:37 Dose: 1 mg Lorazepam (Ativan) 1 mg PO Q6H PRN PRN Reason: Extreme agitation Non-Formulary Medication (Prevagen) 10 mg PO DAILY [facility] Last Admin: 05/25/17 08:10 Dose: Not Given Olanzapine (Zyprexa Zydis) 2.5 mg PO Q6HR PRN PRN Reason: Agitation Last Admin: 05/24/17 15:28 Dose: 2.5 mg Olanzapine (Zyprexa Inj) 2.5 mg IM PRN PRN PRN Reason: Agitation Olanzapine (Zyprexa Zydis) 2.5 mg PO 18 [facility] Last Admin: 05/24/17 18:11 Dose: 2.5 mg Subjective: Patient seen and chart reviewed. Case discussed with treatment team. On interview, patient is irritable but redirectable. She is very upset not understanding why she is in the hospital and worrying that she will be here forever. She endorses morbid thoughts related to hospitalization but denies plan/intent to harm herself on the unit. Patient denies any HI or AVH. She is still paranoid about her son and DIL. Patient denies any adverse side effects related to psychotropic medications. Nursing staff report patient can be irritable and suspicious, becoming agitated at times. Patient has been adherent with medications. Patient slept 6.5 hours overnight. VSS. Patient is eating well. Psychotropic PRNs required in the past 24 hours: Ativan 1mg PO, Zyprexa 2.5mg PO. Start Time: 08:00 Stop Time: 08:20 Mental Status Exam Vitals: Last Vital Signs Temp 97.8 F 05/25/17 08:00 Pulse 71 02/15/18 08:00 Resp 16 05/25/17 08:00 BP 105/73 05/25/17 08:00 Pulse Ox 100 05/25/17 08:00 Height: 1.52 m Weight: 53.4 kg - Mental Status Exam Muscle Strength/Tone: Normal Dressing: Casual Grooming: Fair Attitude: Guarded, Defensive, Argumentative Motor Activity: Restless (at times) Eye Contact: Good Speech: Normal Volume: Normal Rhythm: Appropriate Rhythm Orientation: Disoriented to time, Disoriented to situation, Oriented to person Mood: Angry Affect: Angry, Tearful Rate of Thoughts: Appropriate Rate Thought Organization: Circumstantial, Tangential (at times) Associations: Illogical Abstract Reasoning: Poor abstract reasoning Thought Content: Delusions (towards son and DIL), Ruminations, Paranoia Perception/Psychotic: Perception Normal Language: Naming Intact Fund of Knowledge: Other (Decreased from premorbid baseline) Memory: Poor-recent Suicidal Ideation: Intermittent Homicidal Ideation: Denies Insight: Impaired Judgement: Impaired Impulse Control: Poor - Laboratory Result Diagrams: 05/23/17 10:04 05/23/17 10:04 Assessment and Plan (1) Major neurocognitive disorder Problem details: with behavioral disturbance, Alzheimer's suspected, moderate Other medical problems: Hypernatremia-POA Hyperlipidemia Hypothyroidism Urinary incontinence Right carotid artery stenosis (Doppler 05/26 showing 50-69% stenosis) Cervical disc disease Current visit: Yes Status: Acute Continue current care; monitor response to scheduled Zyprexa. Consider starting antidepressant such as mirtazapine. Hospital Course Summary Disclaimer: The visit summary below is not to be considered part of the above Progress Note. Hospital Course: 05/24/17 Psych: Start Zyprexa 2.5mg PO at dinnertime. 05/25/17 Psych: Continue current care; monitor response to scheduled Zyprexa. Consider starting antidepressant such as mirtazapine.
[2017-05-25] MEDS: OLANZapine ODT 5 MG TABLET PO SCH (17:14)
[2017-05-26] MEDS: LORazepam INTENSOL 1mg/0.5ml ORAL LIQUID PO PRN (05:30)
[2017-05-26] MEDS ORDERED: HALOPERIDOL 5 MG/ML INJECTION IM ONE (06:19)
[2017-05-26] MEDS: PREVAGEN PO SCH (09:07)
[2017-05-26] MEDS: ASPIRIN *EC* 81 MG TABLET PO SCH (10:58)
--- NOTE | 2017-05-26 16:18 | Neuropsych Progress Note ---
Generations Subjective Date: 05/26/17 - Sujective/Severity of Illness Medications: Aspirin (Ecotrin) 81 mg PO DAILY [facility] Last Admin: 05/26/17 10:58 Dose: Not Given Haloperidol (Haldol) 0.5 mg PO Q6H PRN PRN Reason: Extreme agitation Haloperidol Lactate (Haldol) 0.5 mg IM Q6H PRN PRN Reason: Extreme agitation Lorazepam (Ativan Inj) 1 mg IM Q6H PRN PRN Reason: Extreme agitation Lorazepam (Ativan Intensol) 1 mg PO Q6H PRN Last Admin: 05/26/17 05:30 Dose: 1 mg Lorazepam (Ativan) 1 mg PO Q6H PRN PRN Reason: Extreme agitation Mirtazapine (Remeron) 7.5 mg PO HS [facility] Non-Formulary Medication (Prevagen) 10 mg PO DAILY [facility] Last Admin: 05/26/17 09:07 Dose: Not Given Olanzapine (Zyprexa Zydis) 2.5 mg PO Q6HR PRN PRN Reason: Agitation Last Admin: 05/24/17 15:28 Dose: 2.5 mg Olanzapine (Zyprexa Inj) 2.5 mg IM PRN PRN PRN Reason: Agitation Olanzapine (Zyprexa Zydis) 2.5 mg PO [facility] Subjective: Patient seen and chart reviewed. Case discussed with treatment team. On interview, patient is much more pleasant than I have seen her and willing to talk about feelings, though she is not fully oriented to situation. She expresses gratitude for social work faculty member speaking with her and listening. She admits to worrying frequently and feeling pulled in different directions about being away from her . She is open to moving closer to him. She denies any current SI. Patient denies any HI or AVH. Patient denies any adverse side effects related to psychotropic medications. Nursing staff report patient was quite labile last evening and early this morning (though she did get 5.5 hours of sleep). She became agitated by staff responding to bed alarm this morning and then made multiple statements and an attempt to smother herself with her pillow/blankets. She did get Haldol 2mg IM early this morning which may have helped with mood. She is also open to medication (discussed mirtazapine) to help with mood/worry. Patient has been adherent with medications. Patient slept 5.5 hours overnight. VSS. Patient is eating well. Psychotropic PRNs required in the past 24 hours: Multiple including above. Start Time: 13:20 Stop Time: 13:40 Mental Status Exam Vitals: Last Vital Signs Temp 97.9 F 05/26/17 12:00 Pulse 79 05/26/17 12:00 Resp 16 05/26/17 12:00 BP 115/69 05/26/17 12:00 Pulse Ox 99 05/26/17 12:00 Height: 1.52 m Weight: 53.4 kg - Mental Status Exam Muscle Strength/Tone: Normal Dressing: Casual Grooming: Fair Attitude: Uncooperative (at times), Suspicious Motor Activity: Normal Eye Contact: Good Speech: Normal Volume: Normal Rhythm: Appropriate Rhythm Orientation: Disoriented to time, Disoriented to situation, Oriented to person Mood: Anxious Affect: Sad Rate of Thoughts: Appropriate Rate Thought Organization: Circumstantial, Tangential (at times) Associations: Illogical Abstract Reasoning: Poor abstract reasoning Thought Content: Delusions (seem to be improving), Ruminations Perception/Psychotic: Perception Normal Language: Naming Intact Fund of Knowledge: Other (Decreased from premorbid baseline) Memory: Poor-recent Suicidal Ideation: Intermittent, Other (attempted this morning) Homicidal Ideation: Denies Insight: Impaired Judgement: Impaired Impulse Control: Poor - Laboratory Result Diagrams: 05/23/17 10:04 05/23/17 10:04 Assessment and Plan (1) Major neurocognitive disorder Problem details: with behavioral disturbance, Alzheimer's suspected, moderate Other medical problems: Hypernatremia-POA Hyperlipidemia Hypothyroidism Urinary incontinence Right carotid artery stenosis (Doppler 05/26 showing 50-69% stenosis) Cervical disc disease Current visit: Yes Status: Acute Patient to be on 1:1 within line of sight when agitated. She later calms and forgets suicidal statements/gestures due to STM loss. I do not feel it is safe for staff or therapeutic for patient to require them to be in arm's reach at all times. Will increase Zyprexa to 2.5mg PO BID and start mirtazapine 7.5mg PO q HS tonight. Hospital Course Summary Disclaimer: The visit summary below is not to be considered part of the above Progress Note. Hospital Course: 05/24/17 Psych: Start Zyprexa 2.5mg PO at dinnertime. 05/25/17 Psych: Continue current care; monitor response to scheduled Zyprexa. Consider starting antidepressant such as mirtazapine. 05/26/17 Psych: Patient to be on 1:1 within line of sight when agitated. She later calms and forgets suicidal statements/gestures due to STM loss. I do not feel it is safe for staff or therapeutic for patient to require them to be in arm's reach at all times. Will increase Zyprexa to 2.5mg PO BID and start mirtazapine 7.5mg PO q HS tonight.
[2017-05-26] MEDS: OLANZapine ODT 5 MG TABLET PO SCH (17:59)
[2017-05-26] MEDS: MIRTAZAPINE 15 MG TABLET PO SCH (20:13)
[2017-05-27] MEDS: ASPIRIN *EC* 81 MG TABLET PO SCH ×2 (07:48→10:52)
[2017-05-27] MEDS: OLANZapine ODT 5 MG TABLET PO SCH ×2 (07:48→17:02)
--- NOTE | 2017-05-27 08:28 | Neuropsych Progress Note ---
Generations Subjective Date: 05/27/17 - Sujective/Severity of Illness Medications: Aspirin (Ecotrin) 81 mg PO DAILY [facility] Last Admin: 05/27/17 07:48 Dose: 81 mg Haloperidol (Haldol) 0.5 mg PO Q6H PRN PRN Reason: Extreme agitation Haloperidol Lactate (Haldol) 0.5 mg IM Q6H PRN PRN Reason: Extreme agitation Lorazepam (Ativan Inj) 1 mg IM Q6H PRN PRN Reason: Extreme agitation Lorazepam (Ativan Intensol) 1 mg PO Q6H PRN Last Admin: 05/26/17 05:30 Dose: 1 mg Lorazepam (Ativan) 1 mg PO Q6H PRN PRN Reason: Extreme agitation Mirtazapine (Remeron) 7.5 mg PO HS [facility] Last Admin: 05/26/17 20:13 Dose: 7.5 mg Non-Formulary Medication (Prevagen) 10 mg PO DAILY [facility] Last Admin: 05/26/17 09:07 Dose: Not Given Olanzapine (Zyprexa Zydis) 2.5 mg PO Q6HR PRN PRN Reason: Agitation Last Admin: 05/24/17 15:28 Dose: 2.5 mg Olanzapine (Zyprexa Inj) 2.5 mg IM PRN PRN PRN Reason: Agitation Olanzapine (Zyprexa Zydis) 2.5 mg PO [facility] Last Admin: 05/27/17 07:48 Dose: 2.5 mg Subjective: Patient seen and chart reviewed. Nursing reports pt is doing a little better. She slept well and has a good appetite. She remains confused but pleasant. On face to face the pt states she is doing well. She is only oriented to self. She denies any pain. Reports her mood is stable. Denies any S/I. Tolerating meds Start Time: 08:00 Stop Time: 08:15 Mental Status Exam Vitals: Last Vital Signs Temp 96.9 F 05/27/17 07:38 Pulse 79 05/27/17 07:38 Resp 15 05/27/17 07:38 BP 106/71 05/27/17 07:38 Pulse Ox 98 05/27/17 07:38 Height: 1.52 m Weight: 53.4 kg - Mental Status Exam Muscle Strength/Tone: Normal Dressing: Casual Grooming: Fair Attitude: Cooperative Motor Activity: Normal Eye Contact: Good Speech: Normal Volume: Normal Rhythm: Appropriate Rhythm Orientation: Disoriented to time, Disoriented to situation, Oriented to person Mood: Neutral Rate of Thoughts: Appropriate Rate Thought Organization: Circumstantial, Tangential (at times) Associations: Illogical Abstract Reasoning: Poor abstract reasoning Thought Content: Delusions (seem to be improving), Ruminations Perception/Psychotic: Perception Normal Language: Naming Intact Fund of Knowledge: Other (Decreased from premorbid baseline) Memory: Poor-recent Suicidal Ideation: Intermittent, Other (attempted this morning) Homicidal Ideation: Denies Insight: Impaired Judgement: Impaired Impulse Control: Poor - Laboratory Result Diagrams: 05/23/17 10:04 05/23/17 10:04 Assessment and Plan (1) Major neurocognitive disorder Problem details: with behavioral disturbance, Alzheimer's suspected, moderate Other medical problems: Hypernatremia-POA Hyperlipidemia Hypothyroidism Urinary incontinence Right carotid artery stenosis (Doppler 05/26 showing 50-69% stenosis) Cervical disc disease Current visit: Yes Status: Acute Hospital Course Summary Disclaimer: The visit summary below is not to be considered part of the above Progress Note. Hospital Course: 05/24/17 Psych: Start Zyprexa 2.5mg PO at dinnertime. 05/25/17 Psych: Continue current care; monitor response to scheduled Zyprexa. Consider starting antidepressant such as mirtazapine. 05/26/17 Psych: Patient to be on 1:1 within line of sight when agitated. She later calms and forgets suicidal statements/gestures due to STM loss. I do not feel it is safe for staff or therapeutic for patient to require them to be in arm's reach at all times. Will increase Zyprexa to 2.5mg PO BID and start mirtazapine 7.5mg PO q HS tonight. 05/27/17 Psych- Pt is pleasant but confused. Continue current care
[2017-05-27] MEDS ORDERED: PHENOL PO PRN (10:50)
[2017-05-27] MEDS ORDERED: [UNRECOGNIZED DRUG - OTHER] PO PRN (10:50)
[2017-05-27] MEDS: PREVAGEN PO SCH (10:52)
[2017-05-27] MEDS: MIRTAZAPINE 15 MG TABLET PO SCH ×2 (19:37→21:00)
[2017-05-27] MEDS: LORazepam INTENSOL 1mg/0.5ml ORAL LIQUID PO PRN (22:39)
[2017-05-28] MEDS: OLANZapine ODT 5 MG TABLET PO SCH ×2 (07:57→20:05)
[2017-05-28] MEDS: LORazepam INTENSOL 1mg/0.5ml ORAL LIQUID PO PRN (07:59)
[2017-05-28] MEDS: PREVAGEN PO SCH (08:08)
[2017-05-28] MEDS: ASPIRIN *EC* 81 MG TABLET PO SCH (08:08)
--- NOTE | 2017-05-28 10:37 | Neuropsych Progress Note ---
Generations Subjective Date: 05/28/17 - Sujective/Severity of Illness Medications: Aspirin (Ecotrin) 81 mg PO DAILY [facility] Last Admin: 05/28/17 08:08 Dose: 81 mg Haloperidol (Haldol) 0.5 mg PO Q6H PRN PRN Reason: Extreme agitation Haloperidol Lactate (Haldol) 0.5 mg IM Q6H PRN PRN Reason: Extreme agitation Lorazepam (Ativan Inj) 1 mg IM Q6H PRN PRN Reason: Extreme agitation Last Admin: 05/27/17 22:50 Dose: 1 mg Lorazepam (Ativan Intensol) 1 mg PO Q6H PRN Last Admin: 05/28/17 07:59 Dose: 1 mg Lorazepam (Ativan) 1 mg PO Q6H PRN PRN Reason: Extreme agitation Mirtazapine (Remeron) 7.5 mg PO HS [facility] Last Admin: 05/27/17 21:00 Dose: Not Given Non-Formulary Medication (Prevagen) 10 mg PO DAILY [facility] Last Admin: 05/28/17 08:08 Dose: Not Given Olanzapine (Zyprexa Zydis) 2.5 mg PO Q6HR PRN PRN Reason: Agitation Last Admin: 05/24/17 15:28 Dose: 2.5 mg Olanzapine (Zyprexa Inj) 2.5 mg IM PRN PRN PRN Reason: Agitation Olanzapine (Zyprexa Zydis) 2.5 mg PO [facility] Last Admin: 05/28/17 07:57 Dose: 2.5 mg Throat Lozenges (Cepastat Sf) 1 lozenge PO PRN PRN PRN Reason: Sore throat Last Admin: 05/27/17 15:24 Dose: 1 lozenge Subjective: Patient seen and chart reviewed. Nursing reports pt remains irritable and aggressive at times. She got Ativan IM yesterday evening and Ativan PO this AM. On face to face the pt is irritable and confused. She states she needs to get to a mammogram today. She is only oriented to self. She is tearful during the interview but is redirectable. Tolerating meds Start Time: 10:15 Stop Time: 10:30 Mental Status Exam Vitals: Last Vital Signs Temp 99.0 F 05/28/17 08:00 Pulse 88 05/28/17 08:00 Resp 20 02/18/18 08:00 BP 97/63 05/28/17 08:00 Pulse Ox 98 05/28/17 08:00 Height: 1.52 m Weight: 53.4 kg - Mental Status Exam Muscle Strength/Tone: Normal Dressing: Casual Grooming: Fair Attitude: Cooperative Motor Activity: Normal Eye Contact: Good Speech: Normal Volume: Normal Rhythm: Appropriate Rhythm Orientation: Disoriented to time, Disoriented to situation, Oriented to person Mood: Neutral Rate of Thoughts: Appropriate Rate Thought Organization: Circumstantial, Tangential (at times) Associations: Illogical Abstract Reasoning: Poor abstract reasoning Thought Content: Delusions (seem to be improving), Ruminations Perception/Psychotic: Perception Normal Language: Naming Intact Fund of Knowledge: Other (Decreased from premorbid baseline) Memory: Poor-recent Suicidal Ideation: Intermittent, Other (attempted this morning) Homicidal Ideation: Denies Insight: Impaired Judgement: Impaired Impulse Control: Poor - Laboratory Result Diagrams: 05/23/17 10:04 05/23/17 10:04 Assessment and Plan (1) Major neurocognitive disorder Problem details: with behavioral disturbance, Alzheimer's suspected, moderate Other medical problems: Hypernatremia-POA Hyperlipidemia Hypothyroidism Urinary incontinence Right carotid artery stenosis (Doppler 05/26 showing 50-69% stenosis) Cervical disc disease Current visit: Yes Status: Acute Hospital Course Summary Disclaimer: The visit summary below is not to be considered part of the above Progress Note. Hospital Course: 05/24/17 Psych: Start Zyprexa 2.5mg PO at dinnertime. 05/25/17 Psych: Continue current care; monitor response to scheduled Zyprexa. Consider starting antidepressant such as mirtazapine. 05/26/17 Psych: Patient to be on 1:1 within line of sight when agitated. She later calms and forgets suicidal statements/gestures due to STM loss. I do not feel it is safe for staff or therapeutic for patient to require them to be in arm's reach at all times. Will increase Zyprexa to 2.5mg PO BID and start mirtazapine 7.5mg PO q HS tonight. 05/27/17 Psych- Pt is pleasant but confused. Continue current care 05/28/17 Psych- PT remains irritable and aggressive at times. Increase 1800 dose of Zyprexa to 5mg
[2017-05-28] MEDS ORDERED: OLANZapine INJ 10 MG VIAL IM ONE (12:21)
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
[2017-05-28] MEDS: MIRTAZAPINE 15 MG TABLET PO SCH (20:05)
[2017-05-29] MEDS: ASPIRIN *EC* 81 MG TABLET PO SCH (10:08)
[2017-05-29] MEDS: OLANZapine ODT 5 MG TABLET PO SCH ×2 (10:08→21:00)
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
[2017-05-29] MEDS: MIRTAZAPINE 15 MG TABLET PO SCH (21:00)
[2017-05-30] MEDS: OLANZapine ODT 5 MG TABLET PO SCH ×3 (08:30→21:25)
[2017-05-30] MEDS: ASPIRIN *EC* 81 MG TABLET PO SCH (08:41)
[2017-05-30] MEDS ORDERED: BENZOCAINE/MENTHOL SORE THROAT LOZENGE PO PRN (10:06)
[2017-05-30] MEDS: MIRTAZAPINE 15 MG TABLET PO SCH ×2 (19:45→21:24)
[2017-05-31] MEDS: OLANZapine ODT 5 MG TABLET PO SCH ×2 (08:16→20:45)
[2017-05-31] MEDS: ASPIRIN *EC* 81 MG TABLET PO SCH (08:19)
[2017-05-31] MEDS ORDERED: DIVALPROEX 250 MG TABLET PO ONE (18:03)
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
[2017-05-31] MEDS: MIRTAZAPINE 15 MG TABLET PO SCH (20:45)
[2017-06-01] MEDS: OLANZapine ODT 5 MG TABLET PO SCH (09:38)
[2017-06-01] MEDS: ASPIRIN *EC* 81 MG TABLET PO SCH (09:38)
[2017-06-01] MEDS: RisperiDONE ODT 0.5 MG TABLET PO SCH ×2 (13:40→18:07)
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
[2017-06-01] MEDS: LORazepam INTENSOL 1mg/0.5ml ORAL LIQUID PO PRN (21:48)
[2017-06-02] MEDS: ASPIRIN *EC* 81 MG TABLET PO SCH (08:20)
[2017-06-02] MEDS: RisperiDONE ODT 0.5 MG TABLET PO SCH ×2 (13:27→19:23)
[2017-06-02] MEDS: ESCITALOPRAM 10 MG TABLET PO SCH (13:27)
--- NOTE | 2017-06-02 13:30 | Neuropsych Progress Note ---
[facility] Subjective Date: 06/02/17 - Sujective/Severity of Illness Medications: Aspirin (Ecotrin) 81 mg PO DAILY [facility] Last Admin: 06/02/17 08:20 Dose: 81 mg Benzocaine (Cepacol Sore Throat Lozenge) 1 lozenge PO PRN PRN PRN Reason: Sore throat Escitalopram Oxalate (Lexapro) 10 mg PO DAILY [facility] Haloperidol (Haldol) 0.5 mg PO Q6H PRN PRN Reason: Extreme agitation Haloperidol Lactate (Haldol) 0.5 mg IM Q6H PRN PRN Reason: Extreme agitation Last Admin: 05/31/17 20:10 Dose: 0.5 mg Lorazepam (Ativan Inj) 1 mg IM Q6H PRN PRN Reason: Extreme agitation Last Admin: 05/31/17 01:50 Dose: 1 mg Lorazepam (Ativan Intensol) 1 mg PO Q6H PRN Last Admin: 06/01/17 21:48 Dose: 1 mg Lorazepam (Ativan) 1 mg PO Q6H PRN PRN Reason: Extreme agitation Last Admin: 05/28/17 21:43 Dose: 1 mg Mirtazapine (Remeron) 7.5 mg PO HS [facility] Last Admin: 05/31/17 20:45 Dose: Not Given Olanzapine (Zyprexa Zydis) 2.5 mg PO Q6HR PRN PRN Reason: Agitation Last Admin: 05/24/17 15:28 Dose: 2.5 mg Olanzapine (Zyprexa Inj) 2.5 mg IM PRN PRN PRN Reason: Agitation Risperidone (Risperdal M) 1 mg PO ,19 [facility] Last Admin: 06/01/17 18:07 Dose: 1 mg Subjective: Patient seen and chart reviewed. Case discussed with treatment team. On interview, patient is cooperative but worried about where she will go after discharge. She denies feeling depressed but has been intermittently tearful this morning. She denies any recent morbid thoughts. Patient denies any SI, HI or AVH. Patient denies any adverse side effects related to psychotropic medications. Nursing staff report patient is less labile overall. She did make a statement about wanting to but was redirectable. She has been more cooperative with meds and cares since switching to Risperdal. She did have some paranoia overnight and increased agitation related to not liking [employer] costumes and thinking they should skate naked instead. Patient slept 7.25 hours interrupted hours overnight. VSS. Patient is mostly eating well. Psychotropic PRNs required in the past 24 hours: Ativan Intensol 1mg at 2148. Start Time: 09:40 Stop Time: 10:00 Mental Status Exam Vitals: Last Vital Signs Temp 98.0 F 06/01/17 19:38 Pulse 87 06/01/17 19:38 Resp 15 06/02/17 07:50 BP 118/67 06/02/17 07:50 Pulse Ox 98 06/02/17 07:50 Height: 1.52 m Weight: 54.4 kg - Mental Status Exam Muscle Strength/Tone: Normal Dressing: Casual Grooming: Fair Attitude: Cooperative (sometimes), Suspicious (at times) Motor Activity: Normal Eye Contact: Good Speech: Normal Volume: Normal Rhythm: Appropriate Rhythm Sensory: Alert Orientation: Disoriented to time, Disoriented to place, Disoriented to situation , Oriented to person Mood: Neutral Affect: Tearful (at times) Rate of Thoughts: Appropriate Rate Thought Organization: Circumstantial, Tangential (at times) Associations: Illogical Abstract Reasoning: Poor abstract reasoning Thought Content: Ruminations (improving), Paranoia (intermittent), Hypersexual ( in evenings) Perception/Psychotic: Perception Normal Language: Naming Intact Fund of Knowledge: Other (Decreased from premorbid baseline) Memory: Poor-recent Suicidal Ideation: Denies Homicidal Ideation: Denies Insight: Impaired Judgement: Impaired Impulse Control: Other (Limited though improved from admission) - Laboratory Result Diagrams: 05/30/17 07:05 05/30/17 07:05 Assessment and Plan (1) Major neurocognitive disorder Problem details: with behavioral disturbance, Alzheimer's suspected, moderate Other medical problems: Hypernatremia-POA Hyperlipidemia Hypothyroidism Urinary incontinence Right carotid artery stenosis (Doppler 05/26 showing 50-69% stenosis) Cervical disc disease Current visit: Yes Status: Acute Will start Lexapro 10mg PO today to help with mood. Will also order CT of head in regards to possible etiology of dementia. Hospital Course Summary Disclaimer: The visit summary below is not to be considered part of the above Progress Note. Hospital Course: 05/24/17 Psych: Start Zyprexa 2.5mg PO at dinnertime. 05/25/17 Psych: Continue current care; monitor response to scheduled Zyprexa. Consider starting antidepressant such as mirtazapine. 05/26/17 Psych: Patient to be on 1:1 within line of sight when agitated. She later calms and forgets suicidal statements/gestures due to STM loss. I do not feel it is safe for staff or therapeutic for patient to require them to be in arm's reach at all times. Will increase Zyprexa to 2.5mg PO BID and start mirtazapine 7.5mg PO q HS tonight. 05/27/17 Psych- Pt is pleasant but confused. Continue current care 05/28/17 Psych- PT remains irritable and aggressive at times. Increase 1800 dose of Zyprexa to 5mg 05/28/17 Continue safe environment. Behaviors remain an issue. She has been quite violent with staff at times. Continues to require PRN meds. Will repeat labs in am, Lipid panel and A1c for core measures. 05/29/17 Psych: Zyprexa increased yesterday; monitor response. Consider decreasing dose of PRN Ativan as it may be disinhibiting her. 05/31/17 Psych: Will add Depakote DR 250mg PO q HS to target ; monitor response. (Patient never got Depakote and it was not continued after switch to Risperdal on 06/01). 06/01/17 Psych: Will discontinue Zyprexa and switch to Risperdal BID (in afternoon and evening). Have asked nursing to call me if she refuses meds because will consider IM administration. 06/02/17 Psych: Will start Lexapro 10mg PO today to help with mood. Will also order CT of head in regards to possible etiology of dementia.
--- NOTE | 2017-06-02 15:21 | CT Scan Report ---
Indication: neuropsych evaluation PROCEDURE: CT head/brain wo con: Encounter: Initial Comparison: None Technique: Axial CT images through the head were performed without contrast. Iterative Reconstruction dose reducing technique was utilized. FINDINGS: The ventricles are of normal size, shape, and contour for the patient's age. There are scattered areas of low attenuation in the white matter which most likely represent changes from chronic microvascular ischemia. The brainstem, cerebellum, and cerebral hemispheres otherwise have a normal morphology and CT attenuation. There is no evidence of midline displacement. No hemorrhage, signs of acute territorial stroke, mass effect, mass lesions, or edema is evident. The visualized portions of the skull base, midface, and calvarium demonstrate no abnormality. The paranasal sinuses are well aerated and free of significant disease. The tympanic and mastoid cavities appear normal. IMPRESSION: No acute intracranial abnormality or hemorrhage. .
[2017-06-03] MEDS: ESCITALOPRAM 10 MG TABLET PO SCH (08:03)
[2017-06-03] MEDS: ASPIRIN *EC* 81 MG TABLET PO SCH (08:03)
--- NOTE | 2017-06-03 09:36 | Neuropsych Progress Note ---
[facility] Subjective Date: 06/03/17 - Sujective/Severity of Illness Medications: Aspirin (Ecotrin) 81 mg PO DAILY [facility] Last Admin: 06/03/17 08:03 Dose: 81 mg Benzocaine (Cepacol Sore Throat Lozenge) 1 lozenge PO PRN PRN PRN Reason: Sore throat Escitalopram Oxalate (Lexapro) 10 mg PO DAILY [facility] Last Admin: 06/03/17 08:03 Dose: 10 mg Haloperidol (Haldol) 0.5 mg PO Q6H PRN PRN Reason: Extreme agitation Haloperidol Lactate (Haldol) 0.5 mg IM Q6H PRN PRN Reason: Extreme agitation Last Admin: 05/31/17 20:10 Dose: 0.5 mg Lorazepam (Ativan Inj) 1 mg IM Q6H PRN PRN Reason: Extreme agitation Last Admin: 05/31/17 01:50 Dose: 1 mg Lorazepam (Ativan Intensol) 1 mg PO Q6H PRN Last Admin: 06/01/17 21:48 Dose: 1 mg Lorazepam (Ativan) 1 mg PO Q6H PRN PRN Reason: Extreme agitation Last Admin: 05/28/17 21:43 Dose: 1 mg Risperidone (Risperdal M) 1 mg PO 19 [facility] Last Admin: 06/02/17 19:23 Dose: 1 mg Subjective: Patient seen and chart reviewed. Nursing reports pt is doing better. Slept well and has a good appetite. No behaviors noted. On face to face the pt is pleasant. She is tearful at times and has guilt about the way she acted when she came in. She has very poor short term memory. She denies any S/I. Tolerating meds Start Time: 09:30 Stop Time: 09:45 Mental Status Exam Vitals: Last Vital Signs Temp 97.1 F 06/02/17 19:20 Pulse 84 06/02/17 19:20 Resp 16 06/02/17 19:20 BP 128/78 06/02/17 19:20 Pulse Ox 98 06/02/17 19:20 Height: 1.52 m Weight: 54.4 kg - Mental Status Exam Muscle Strength/Tone: Normal Dressing: Casual Grooming: Fair Attitude: Cooperative (sometimes), Suspicious (at times) Motor Activity: Normal Eye Contact: Good Speech: Normal Volume: Normal Rhythm: Appropriate Rhythm Orientation: Disoriented to time, Disoriented to place, Disoriented to situation , Oriented to person Mood: Neutral Rate of Thoughts: Appropriate Rate Thought Organization: Circumstantial, Tangential (at times) Associations: Illogical Abstract Reasoning: Poor abstract reasoning Thought Content: Ruminations (improving), Paranoia (intermittent), Hypersexual ( in evenings) Perception/Psychotic: Perception Normal Language: Naming Intact Fund of Knowledge: Other (Decreased from premorbid baseline) Memory: Poor-recent Suicidal Ideation: Denies Homicidal Ideation: Denies Insight: Impaired Judgement: Impaired Impulse Control: Other (Limited though improved from admission) - Laboratory Result Diagrams: 05/30/17 07:05 05/30/17 07:05 Assessment and Plan (1) Major neurocognitive disorder Problem details: with behavioral disturbance, Alzheimer's suspected, moderate Other medical problems: Hypernatremia-POA Hyperlipidemia Hypothyroidism Urinary incontinence Right carotid artery stenosis (Doppler 05/26 showing 50-69% stenosis) Cervical disc disease Current visit: Yes Status: Acute Hospital Course Summary Disclaimer: The visit summary below is not to be considered part of the above Progress Note. Hospital Course: 05/24/17 Psych: Start Zyprexa 2.5mg PO at dinnertime. 05/25/17 Psych: Continue current care; monitor response to scheduled Zyprexa. Consider starting antidepressant such as mirtazapine. 05/26/17 Psych: Patient to be on 1:1 within line of sight when agitated. She later calms and forgets suicidal statements/gestures due to STM loss. I do not feel it is safe for staff or therapeutic for patient to require them to be in arm's reach at all times. Will increase Zyprexa to 2.5mg PO BID and start mirtazapine 7.5mg PO q HS tonight. 05/27/17 Psych- Pt is pleasant but confused. Continue current care 05/28/17 Psych- PT remains irritable and aggressive at times. Increase 1800 dose of Zyprexa to 5mg 05/28/17 Continue safe environment. Behaviors remain an issue. She has been quite violent with staff at times. Continues to require PRN meds. Will repeat labs in am, Lipid panel and A1c for core measures. 05/29/17 Psych: Zyprexa increased yesterday; monitor response. Consider decreasing dose of PRN Ativan as it may be disinhibiting her. 05/31/17 Psych: Will add Depakote DR 250mg PO q HS to target ; monitor response. (Patient never got Depakote and it was not continued after switch to Risperdal on 06/01). 06/01/17 Psych: Will discontinue Zyprexa and switch to Risperdal BID (in afternoon and evening). Have asked nursing to call me if she refuses meds because will consider IM administration. 06/02/17 Psych: Will start Lexapro 10mg PO today to help with mood. Will also order CT of head in regards to possible etiology of dementia. 06/03/17 Psych- Pt states her mood is improved. Continue current care
[2017-06-03] MEDS: RisperiDONE ODT 0.5 MG TABLET PO SCH ×2 (13:28→19:19)
--- NOTE | 2017-06-03 15:03 | Progress Note ---
- Date 06/03/17 Subjective: Patient was seen sitting in the TV room today. She is in a good mood. States that the medicine they are giving her is helping her be "happy." No chest pain, shortness of breath, nausea or vomiting. She is sleeping and eating well. No concerns noted by staff. Objective Vital signs: Temperature 97.8 F 06/03/17 14:16 Pulse Rate 84 06/03/17 14:16 Respiratory Rate 18 06/03/17 14:16 Blood Pressure 98/62 06/03/17 14:16 Pulse Oximetry 97 06/03/17 14:16 Height/Weight/BMI: Height 1.52 m Weight 55.2 kg Body Mass Index 23.0 - Constitutional Present: no acute distress, well nourished, well developed - Routine HEENT Exam Head: Present: normocephalic, atraumatic - Routine Respiratory Exam Present: CTA bilaterally. Absent: wheezes - Routine Cardiovascular Exam Present: RRR, no murmur - Routine Abdominal Exam Present: soft, non distended, non tender - Routine Extremities Exam Present: no edema, normal capillary refill - Routine Skin Exam Present: dry, warm - Routine Neurological Exam Present: alert, normal speech - Routine Lymphatic Exam Lymphatic: Absent: adenopathy - Routine Psychiatric Exam Present: normal affect, cooperative Results - Labs CBC & Chem 7: 05/30/17 07:05 05/30/17 07:05 Assessment and Plan (1) Agitation Current visit: Yes Status: Acute (2) Confusion Current visit: Yes Status: Acute (3) Major neurocognitive disorder Problem details: with behavioral disturbance, Alzheimer's suspected, moderate Other medical problems: Hypernatremia-POA Hyperlipidemia Hypothyroidism Urinary incontinence Right carotid artery stenosis (Doppler 05/26 showing 50-69% stenosis) Cervical disc disease Current visit: Yes Status: Acute Assessment and Plan: Assessment Cognitive impairment with increasing agitation Hypernatremia-POA Hyperlipidemia Hypothyroidism Urinary incontinence Right carotid artery stenosis (Doppler 05/26 showing 50-69% stenosis) Anxiety Cervical disc disease Plan No medical concerns at this time. Her niece reports she is due to have a repeat carotid sonogram in the month of May. This will be done on an outpatient basis. Nurse's notes, psychiatric notes, vitals and labs reviewed. - Physician Narrative Narrative: Date: 06/03/17 Time: 1500 Hospital Course Summary Disclaimer: The visit summary below is not to be considered part of the above Progress Note. Hospital Course: 05/24/17 Psych: Start Zyprexa 2.5mg PO at dinnertime. 05/25/17 Psych: Continue current care; monitor response to scheduled Zyprexa. Consider starting antidepressant such as mirtazapine. 05/26/17 Psych: Patient to be on 1:1 within line of sight when agitated. She later calms and forgets suicidal statements/gestures due to STM loss. I do not feel it is safe for staff or therapeutic for patient to require them to be in arm's reach at all times. Will increase Zyprexa to 2.5mg PO BID and start mirtazapine 7.5mg PO q HS tonight. 05/27/17 Psych- Pt is pleasant but confused. Continue current care 05/28/17 Psych- PT remains irritable and aggressive at times. Increase 1800 dose of Zyprexa to 5mg 05/28/17 Continue safe environment. Behaviors remain an issue. She has been quite violent with staff at times. Continues to require PRN meds. Will repeat labs in am, Lipid panel and A1c for core measures. 05/29/17 Psych: Zyprexa increased yesterday; monitor response. Consider decreasing dose of PRN Ativan as it may be disinhibiting her. 05/31/17 Psych: Will add Depakote DR 250mg PO q HS to target ; monitor response. (Patient never got Depakote and it was not continued after switch to Risperdal on 06/01). 06/01/17 Psych: Will discontinue Zyprexa and switch to Risperdal BID (in afternoon and evening). Have asked nursing to call me if she refuses meds because will consider IM administration. 06/02/17 Psych: Will start Lexapro 10mg PO today to help with mood. Will also order CT of head in regards to possible etiology of dementia. 06/03/17 Psych- Pt states her mood is improved. Continue current care 06/03/17 hospitalist:No medical concerns at this time. Her niece reports she is due to have a repeat carotid sonogram in the month of May. This will be done on an outpatient basis. Nurse's notes, psychiatric notes, vitals and labs reviewed.
[2017-06-04] MEDS: ASPIRIN *EC* 81 MG TABLET PO SCH (08:05)
[2017-06-04] MEDS: ESCITALOPRAM 10 MG TABLET PO SCH (08:05)
--- NOTE | 2017-06-04 11:31 | Neuropsych Progress Note ---
[facility] Subjective Date: 06/04/17 - Sujective/Severity of Illness Medications: Aspirin (Ecotrin) 81 mg PO DAILY [facility] Last Admin: 06/04/17 08:05 Dose: 81 mg Benzocaine (Cepacol Sore Throat Lozenge) 1 lozenge PO PRN PRN PRN Reason: Sore throat Escitalopram Oxalate (Lexapro) 10 mg PO DAILY [facility] Last Admin: 06/04/17 08:05 Dose: 10 mg Haloperidol (Haldol) 0.5 mg PO Q6H PRN PRN Reason: Extreme agitation Haloperidol Lactate (Haldol) 0.5 mg IM Q6H PRN PRN Reason: Extreme agitation Last Admin: 05/31/17 20:10 Dose: 0.5 mg Lorazepam (Ativan Inj) 1 mg IM Q6H PRN PRN Reason: Extreme agitation Last Admin: 05/31/17 01:50 Dose: 1 mg Lorazepam (Ativan Intensol) 1 mg PO Q6H PRN Last Admin: 06/01/17 21:48 Dose: 1 mg Lorazepam (Ativan) 1 mg PO Q6H PRN PRN Reason: Extreme agitation Last Admin: 05/28/17 21:43 Dose: 1 mg Risperidone (Risperdal M) 1 mg PO ,19 [facility] Last Admin: 06/03/17 19:19 Dose: 1 mg Subjective: Patient seen and chart reviewed. Nursing reports pt was confused this AM. She wsoke up at 0430 packing her stuff trying to leave. On face to face the pt is slightly more confused today. She is only oriented to self. She talks about not liking where she showered this AM and believes she was at a different place. Reports some depression. Denies S/I. Tolerating meds Start Time: 10:30 Stop Time: 10:45 Mental Status Exam Vitals: Last Vital Signs Temp 98.2 F 06/04/17 08:00 Pulse 72 06/04/17 08:00 Resp 16 06/04/17 08:00 BP 91/57 06/04/17 08:00 Pulse Ox 92 06/04/17 08:00 Height: 1.52 m Weight: 55.2 kg - Mental Status Exam Muscle Strength/Tone: Normal Dressing: Casual Grooming: Fair Attitude: Cooperative (sometimes), Suspicious (at times) Motor Activity: Normal Eye Contact: Good Speech: Normal Volume: Normal Rhythm: Appropriate Rhythm Orientation: Disoriented to time, Disoriented to place, Disoriented to situation , Oriented to person Mood: Neutral Rate of Thoughts: Appropriate Rate Thought Organization: Circumstantial, Tangential (at times) Associations: Illogical Abstract Reasoning: Poor abstract reasoning Thought Content: Ruminations (improving), Paranoia (intermittent), Hypersexual ( in evenings) Perception/Psychotic: Perception Normal Language: Naming Intact Fund of Knowledge: Other (Decreased from premorbid baseline) Memory: Poor-recent Suicidal Ideation: Denies Homicidal Ideation: Denies Insight: Impaired Judgement: Impaired Impulse Control: Other (Limited though improved from admission) - Laboratory Result Diagrams: 05/30/17 07:05 05/30/17 07:05 Assessment and Plan (1) Major neurocognitive disorder Problem details: with behavioral disturbance, Alzheimer's suspected, moderate Other medical problems: Hypernatremia-POA Hyperlipidemia Hypothyroidism Urinary incontinence Right carotid artery stenosis (Doppler 05/26 showing 50-69% stenosis) Cervical disc disease Current visit: Yes Status: Acute Hospital Course Summary Disclaimer: The visit summary below is not to be considered part of the above Progress Note. Hospital Course: 05/24/17 Psych: Start Zyprexa 2.5mg PO at dinnertime. 05/25/17 Psych: Continue current care; monitor response to scheduled Zyprexa. Consider starting antidepressant such as mirtazapine. 05/26/17 Psych: Patient to be on 1:1 within line of sight when agitated. She later calms and forgets suicidal statements/gestures due to STM loss. I do not feel it is safe for staff or therapeutic for patient to require them to be in arm's reach at all times. Will increase Zyprexa to 2.5mg PO BID and start mirtazapine 7.5mg PO q HS tonight. 05/27/17 Psych- Pt is pleasant but confused. Continue current care 05/28/17 Psych- PT remains irritable and aggressive at times. Increase 1800 dose of Zyprexa to 5mg 05/28/17 Continue safe environment. Behaviors remain an issue. She has been quite violent with staff at times. Continues to require PRN meds. Will repeat labs in am, Lipid panel and A1c for core measures. 05/29/17 Psych: Zyprexa increased yesterday; monitor response. Consider decreasing dose of PRN Ativan as it may be disinhibiting her. 05/31/17 Psych: Will add Depakote DR 250mg PO q HS to target ; monitor response. (Patient never got Depakote and it was not continued after switch to Risperdal on 06/01). 06/01/17 Psych: Will discontinue Zyprexa and switch to Risperdal BID (in afternoon and evening). Have asked nursing to call me if she refuses meds because will consider IM administration. 06/02/17 Psych: Will start Lexapro 10mg PO today to help with mood. Will also order CT of head in regards to possible etiology of dementia. 06/03/17 Psych- Pt states her mood is improved. Continue current care 06/03/17 hospitalist:No medical concerns at this time. Her niece reports she is due to have a repeat carotid sonogram in the month of May. This will be done on an outpatient basis. Nurse's notes, psychiatric notes, vitals and labs reviewed. 06/04/17 Psych- Pt slightly more confused today. Continue current care
[2017-06-04] MEDS: RisperiDONE ODT 0.5 MG TABLET PO SCH ×2 (12:15→19:54)
--- NOTE | 2017-06-04 17:38 | Progress Note ---
- Date 06/04/17 Subjective: Mrs. Padilla seen ambulating in the halls in [facility]. She asked if I could help her get Dr. Fang's phone number so she could schedule a carotid doppler. She denied focal weakness or numbness and reported it was about her "memory problems". She reports no lightheadedness and indicated she has not been short of breath or had nausea and vomiting. I was contacted earlier today by nursing regarding possibly scheduling carotid Doppler here at family request. Objective Vital signs: Temperature 98.2 F 06/04/17 08:00 Pulse Rate 72 06/04/17 08:00 Respiratory Rate 16 06/04/17 08:00 Blood Pressure 91/57 06/04/17 08:00 Pulse Oximetry 92 06/04/17 08:00 NAD, cooperative, pleasant Respirations nonlabored, breath sounds clear Regular rhythm, S1-S2 Carotids brisk bilaterally, well-healed left carotid scar; no bruits appreciated over the carotids Abdomen soft, nontender Ambulating unassisted and without difficulty Height/Weight/BMI: Height 1.52 m Weight 55.2 kg Body Mass Index 23.0 Results - Labs CBC & Chem 7: 05/30/17 07:05 05/30/17 07:05 Assessment and Plan (1) Major neurocognitive disorder Problem details: with behavioral disturbance, Alzheimer's suspected, moderate Other medical problems: Hypernatremia-POA Hyperlipidemia Hypothyroidism Urinary incontinence Right carotid artery stenosis (Doppler 05/26 showing 50-69% stenosis) Cervical disc disease Current visit: Yes Status: Acute (2) Agitation Current visit: Yes Status: Acute (3) Confusion Current visit: Yes Status: Acute Assessment and Plan: Assessment Cognitive impairment with increasing agitation Hypernatremia-POA Hyperlipidemia-LDL 183 Hypothyroidism Urinary incontinence Right carotid artery stenosis (Doppler 05/26 showing 50-69% stenosis) Anxiety Cervical disc disease Borderline low B-12 level Plan Medically stable; attempted to contact patient's son per her request to discuss timing of carotid Dopplers. Typically Dr. Fang has studies done in the vascular lab rather than radiology and I suspect he will want hers done and they are with a can be compared to prior studies. Given the absence of acute symptoms I don't believe there is an urgent need for studies to be done prior to discharge but will readdress with family when I can reach them. Head CT reviewed by myself demonstrating chronic microvascular changes but no evidence of stroke/acute pathology. LDL quite high but patient is been intolerant of several statins in the past. Defer management to PCP. B-12 low normal; methylmalonic acid to be obtained as more sensitive. - Physician Narrative Narrative: Date: 06/04/17 Time: 1734 Hospital Course Summary Disclaimer: The visit summary below is not to be considered part of the above Progress Note. Hospital Course: 05/24/17 Psych: Start Zyprexa 2.5mg PO at dinnertime. 05/25/17 Psych: Continue current care; monitor response to scheduled Zyprexa. Consider starting antidepressant such as mirtazapine. 05/26/17 Psych: Patient to be on 1:1 within line of sight when agitated. She later calms and forgets suicidal statements/gestures due to STM loss. I do not feel it is safe for staff or therapeutic for patient to require them to be in arm's reach at all times. Will increase Zyprexa to 2.5mg PO BID and start mirtazapine 7.5mg PO q HS tonight. 05/27/17 Psych- Pt is pleasant but confused. Continue current care 05/28/17 Psych- PT remains irritable and aggressive at times. Increase 1800 dose of Zyprexa to 5mg 05/28/17 Continue safe environment. Behaviors remain an issue. She has been quite violent with staff at times. Continues to require PRN meds. Will repeat labs in am, Lipid panel and A1c for core measures. 05/29/17 Psych: Zyprexa increased yesterday; monitor response. Consider decreasing dose of PRN Ativan as it may be disinhibiting her. 05/31/17 Psych: Will add Depakote DR 250mg PO q HS to target ; monitor response. (Patient never got Depakote and it was not continued after switch to Risperdal on 06/01). 06/01/17 Psych: Will discontinue Zyprexa and switch to Risperdal BID (in afternoon and evening). Have asked nursing to call me if she refuses meds because will consider IM administration. 06/02/17 Psych: Will start Lexapro 10mg PO today to help with mood. Will also order CT of head in regards to possible etiology of dementia. 06/03/17 Psych- Pt states her mood is improved. Continue current care 06/03/17 hospitalist:No medical concerns at this time. Her niece reports she is due to have a repeat carotid sonogram in the month of May. This will be done on an outpatient basis. Nurse's notes, psychiatric notes, vitals and labs reviewed. 06/04/17 Psych- Pt slightly more confused today. Continue current care 06/04/17 hospitalist Medically stable; attempted to contact patient's son per her request to discuss timing of carotid Dopplers. Typically Dr. Fang has studies done in the vascular lab rather than radiology and I suspect he will want hers done and they are with a can be compared to prior studies. Given the absence of acute symptoms I don't believe there is an urgent need for studies to be done prior to discharge but will readdress with family when I can reach them. Head CT reviewed by myself demonstrating chronic microvascular changes but no evidence of stroke/acute pathology. LDL quite high but patient is been intolerant of several statins in the past. Defer management to PCP. B-12 low normal; methylmalonic acid to be obtained as more sensitive.
[2017-06-05] MEDS: ASPIRIN *EC* 81 MG TABLET PO SCH (09:14)
[2017-06-05] MEDS: ESCITALOPRAM 10 MG TABLET PO SCH (09:14)
--- NOTE | 2017-06-05 11:00 | Progress Note ---
Progress Note: Discussed obtaining carotid Doppler while patient is here with Dr. Beltre and with Susu Ziegler. Decision was made to have her get this done on an outpatient basis on the day of discharge, thus she can have this performed while she is still in the facility, but will not be billed under her inpatient stay. Susu will relay this information to the patient's family. I will send order to ultrasound department and once discharge time is decided upon, nurse' s need to let ultrasound department know the approximate arrival time of the patient.
--- NOTE | 2017-06-05 11:03 | Progress Note ---
- Date 06/05/17 Subjective: Patient is seen walking the halls. She is doing well. Anticipating discharge within the next day or 2. No chest pain or shortness of breath. No nursing concerns at this time. Objective Vital signs: Temperature 98.0 F 06/05/17 07:55 Pulse Rate 77 06/05/17 07:55 Respiratory Rate 16 06/05/17 07:55 Blood Pressure 118/71 06/05/17 07:55 Pulse Oximetry 96 06/05/17 07:55 Height/Weight/BMI: Height 1.52 m Weight 55.2 kg Body Mass Index 23.0 - Constitutional Present: no acute distress, well nourished, well developed - Routine HEENT Exam Head: Present: normocephalic, atraumatic - Routine Respiratory Exam Absent: dyspnea, respiratory distress - Routine Neurological Exam Present: alert, moving all extremities, normal speech. Absent: abnormal gait - Routine Psychiatric Exam Present: normal affect, cooperative Results - Labs CBC & Chem 7: 05/30/17 07:05 06/05/17 07:17 Assessment and Plan (1) Agitation Current visit: Yes Status: Acute (2) Confusion Current visit: Yes Status: Acute (3) Major neurocognitive disorder Problem details: with behavioral disturbance, Alzheimer's suspected, moderate Other medical problems: Hypernatremia-POA Hyperlipidemia Hypothyroidism Urinary incontinence Right carotid artery stenosis (Doppler 05/26 showing 50-69% stenosis) Cervical disc disease Current visit: Yes Status: Acute Assessment and Plan: Assessment Cognitive impairment with increasing agitation Hypernatremia-POA Hyperlipidemia-LDL 183 Hypothyroidism Urinary incontinence Right carotid artery stenosis (Doppler 05/26 showing 50-69% stenosis) Anxiety Cervical disc disease Borderline low B-12 level Plan Discussed obtaining carotid Doppler while patient is here with Dr. Beltre and with Susu Ziegler. Decision was made to have her get this done on an outpatient basis on the day of discharge, thus she can have this performed while she is still in the facility, but will not be billed under her inpatient stay. Susu will relay this information to the patient's family. I will send order to ultrasound department and once discharge time is decided upon, nurse' s need to let ultrasound department know the approximate arrival time of the patient. B-12 low normal; methylmalonic acid level is pending. - Physician Narrative Narrative: Date: 06/05/17 Time: 1100 Hospital Course Summary Disclaimer: The visit summary below is not to be considered part of the above Progress Note. Hospital Course: 05/24/17 Psych: Start Zyprexa 2.5mg PO at dinnertime. 05/25/17 Psych: Continue current care; monitor response to scheduled Zyprexa. Consider starting antidepressant such as mirtazapine. 05/26/17 Psych: Patient to be on 1:1 within line of sight when agitated. She later calms and forgets suicidal statements/gestures due to STM loss. I do not feel it is safe for staff or therapeutic for patient to require them to be in arm's reach at all times. Will increase Zyprexa to 2.5mg PO BID and start mirtazapine 7.5mg PO q HS tonight. 05/27/17 Psych- Pt is pleasant but confused. Continue current care 05/28/17 Psych- PT remains irritable and aggressive at times. Increase 1800 dose of Zyprexa to 5mg 05/28/17 Continue safe environment. Behaviors remain an issue. She has been quite violent with staff at times. Continues to require PRN meds. Will repeat labs in am, Lipid panel and A1c for core measures. 05/29/17 Psych: Zyprexa increased yesterday; monitor response. Consider decreasing dose of PRN Ativan as it may be disinhibiting her. 05/31/17 Psych: Will add Depakote DR 250mg PO q HS to target ; monitor response. (Patient never got Depakote and it was not continued after switch to Risperdal on 06/01). 06/01/17 Psych: Will discontinue Zyprexa and switch to Risperdal BID (in afternoon and evening). Have asked nursing to call me if she refuses meds because will consider IM administration. 06/02/17 Psych: Will start Lexapro 10mg PO today to help with mood. Will also order CT of head in regards to possible etiology of dementia. 06/03/17 Psych- Pt states her mood is improved. Continue current care 06/03/17 hospitalist:No medical concerns at this time. Her niece reports she is due to have a repeat carotid sonogram in the month of May. This will be done on an outpatient basis. Nurse's notes, psychiatric notes, vitals and labs reviewed. 06/04/17 Psych- Pt slightly more confused today. Continue current care 06/04/17 hospitalist Medically stable; attempted to contact patient's son per her request to discuss timing of carotid Dopplers. Typically Dr. Fang has studies done in the vascular lab rather than radiology and I suspect he will want hers done and they are with a can be compared to prior studies. Given the absence of acute symptoms I don't believe there is an urgent need for studies to be done prior to discharge but will readdress with family when I can reach them. Head CT reviewed by myself demonstrating chronic microvascular changes but no evidence of stroke/acute pathology. LDL quite high but patient is been intolerant of several statins in the past. Defer management to PCP. B-12 low normal; methylmalonic acid to be obtained as more sensitive.
[2017-06-05] MEDS: RisperiDONE ODT 0.5 MG TABLET PO SCH ×2 (12:04→18:47)
--- NOTE | 2017-06-05 12:39 | Neuropsych Progress Note ---
[facility] Subjective Date: 06/05/17 - Sujective/Severity of Illness Medications: Aspirin (Ecotrin) 81 mg PO DAILY [facility] Last Admin: 06/05/17 09:14 Dose: 81 mg Benzocaine (Cepacol Sore Throat Lozenge) 1 lozenge PO PRN PRN PRN Reason: Sore throat Escitalopram Oxalate (Lexapro) 15 mg PO DAILY [facility] Haloperidol (Haldol) 0.5 mg PO Q6H PRN PRN Reason: Extreme agitation Haloperidol Lactate (Haldol) 0.5 mg IM Q6H PRN PRN Reason: Extreme agitation Last Admin: 05/31/17 20:10 Dose: 0.5 mg Lorazepam (Ativan Inj) 1 mg IM Q6H PRN PRN Reason: Extreme agitation Last Admin: 05/31/17 01:50 Dose: 1 mg Lorazepam (Ativan Intensol) 1 mg PO Q6H PRN Last Admin: 06/01/17 21:48 Dose: 1 mg Lorazepam (Ativan) 1 mg PO Q6H PRN PRN Reason: Extreme agitation Last Admin: 05/28/17 21:43 Dose: 1 mg Risperidone (Risperdal M) 1 mg PO 13,19 [facility] Last Admin: 06/05/17 12:04 Dose: 1 mg Subjective: Patient seen and chart reviewed. Case discussed with treatment team. On interview, patient is pleasant, with bright affect. She is understanding of another peer's confusion/agitation but states that she doesn't let it get to her. She is accepting of possibly going to [facility]. Patient denies any SI, HI or AVH. Patient denies any adverse side effects related to psychotropic medications. Nursing staff report patient had some irritability yesterday afternoon and some short-lived paranoia yesterday evening about staff, but overall has been much improved from admission. Patient has been adherent with medications. Patient slept 8.5 hours overnight. VSS. Patient is eating well. Psychotropic PRNs required in the past 24 hours: none. Start Time: 09:40 Stop Time: 10:00 Mental Status Exam Vitals: Last Vital Signs Temp 98.0 F 06/05/17 07:55 Pulse 77 06/05/17 07:55 Resp 16 06/05/17 07:55 BP 118/71 06/05/17 07:55 Pulse Ox 96 06/05/17 07:55 Height: 1.52 m Weight: 55.2 kg - Mental Status Exam Muscle Strength/Tone: Normal Dressing: Casual Grooming: Fair Attitude: Cooperative (mostly) Motor Activity: Normal Eye Contact: Good Speech: Normal Volume: Normal Rhythm: Appropriate Rhythm Orientation: Disoriented to time, Disoriented to place, Disoriented to situation , Oriented to person Mood: Euthymic Affect: Relaxed (during interview) Rate of Thoughts: Appropriate Rate Thought Organization: Circumstantial, Tangential (at times) Associations: Illogical (at times) Abstract Reasoning: Poor abstract reasoning Thought Content: Paranoia (rare) Perception/Psychotic: Perception Normal Language: Naming Intact Fund of Knowledge: Other (Decreased from premorbid baseline) Memory: Poor-recent Suicidal Ideation: Denies Homicidal Ideation: Denies Insight: Impaired Judgement: Impaired Impulse Control: Fair - Laboratory Result Diagrams: 05/30/17 07:05 06/05/17 07:17 Laboratory Results - last 24 hr 06/05/17 07:17 Turbidity < 20 Sodium 145 H Potassium 4.4 Chloride 106 Carbon Dioxide 31 H Anion Gap 8 BUN 14.0 Creatinine 1.0 GFR Calculation 54 BUN/Creatinine Ratio 14 Glucose 101 Calculated Osmolality 280 Calcium 9.5 Icterus Index < 2 Specimen Hemolysis < 15 Assessment and Plan (1) Major neurocognitive disorder Problem details: with behavioral disturbance, Alzheimer's suspected, moderate Other medical problems: Hypernatremia-POA Hyperlipidemia Hypothyroidism Urinary incontinence Right carotid artery stenosis (Doppler 05/26 showing 50-69% stenosis) Cervical disc disease Current visit: Yes Status: Acute Increase Lexapro to 15mg PO daily; continue Risperdal 1mg PO BID. CM is working with family and facilities, preferably [facility], in regards to discharge planning. Hospital Course Summary Disclaimer: The visit summary below is not to be considered part of the above Progress Note. Hospital Course: 05/24/17 Psych: Start Zyprexa 2.5mg PO at dinnertime. 05/25/17 Psych: Continue current care; monitor response to scheduled Zyprexa. Consider starting antidepressant such as mirtazapine. 05/26/17 Psych: Patient to be on 1:1 within line of sight when agitated. She later calms and forgets suicidal statements/gestures due to STM loss. I do not feel it is safe for staff or therapeutic for patient to require them to be in arm's reach at all times. Will increase Zyprexa to 2.5mg PO BID and start mirtazapine 7.5mg PO q HS tonight. 05/27/17 Psych- Pt is pleasant but confused. Continue current care 05/28/17 Psych- PT remains irritable and aggressive at times. Increase 1800 dose of Zyprexa to 5mg 05/28/17 Continue safe environment. Behaviors remain an issue. She has been quite violent with staff at times. Continues to require PRN meds. Will repeat labs in am, Lipid panel and A1c for core measures. 05/29/17 Psych: Zyprexa increased yesterday; monitor response. Consider decreasing dose of PRN Ativan as it may be disinhibiting her. 05/31/17 Psych: Will add Depakote DR 250mg PO q HS to target ; monitor response. (Patient never got Depakote and it was not continued after switch to Risperdal on 06/01). 06/01/17 Psych: Will discontinue Zyprexa and switch to Risperdal BID (in afternoon and evening). Have asked nursing to call me if she refuses meds because will consider IM administration. 06/02/17 Psych: Will start Lexapro 10mg PO today to help with mood. Will also order CT of head in regards to possible etiology of dementia. 06/03/17 Psych- Pt states her mood is improved. Continue current care 06/03/17 hospitalist:No medical concerns at this time. Her niece reports she is due to have a repeat carotid sonogram in the month of May. This will be done on an outpatient basis. Nurse's notes, psychiatric notes, vitals and labs reviewed. 06/04/17 Psych- Pt slightly more confused today. Continue current care 06/04/17 hospitalist Medically stable; attempted to contact patient's son per her request to discuss timing of carotid Dopplers. Typically Dr. Fang has studies done in the vascular lab rather than radiology and I suspect he will want hers done and they are with a can be compared to prior studies. Given the absence of acute symptoms I don't believe there is an urgent need for studies to be done prior to discharge but will readdress with family when I can reach them. Head CT reviewed by myself demonstrating chronic microvascular changes but no evidence of stroke/acute pathology. LDL quite high but patient is been intolerant of several statins in the past. Defer management to PCP. B-12 low normal; methylmalonic acid to be obtained as more sensitive. 06/05/17 Psych: Increase Lexapro to 15mg PO daily; continue Risperdal 1mg PO BID. CM is working with family and facilities, preferably [facility], in regards to discharge planning.
[2017-06-06] MEDS ORDERED: ESCITALOPRAM 20 MG TABLET PO SCH (09:00)
[2017-06-06] MEDS: ASPIRIN *EC* 81 MG TABLET PO SCH (09:04)
[2017-06-06] MEDS: ESCITALOPRAM 20 MG TABLET PO SCH (09:05)
[2017-06-06] MEDS: RisperiDONE ODT 0.5 MG TABLET PO SCH ×2 (12:13→18:02)
[2017-06-06] MEDS ORDERED: ACETAMINOPHEN 325 MG TABLET PO PRN (17:55)
--- NOTE | 2017-06-06 19:01 | Neuropsych Progress Note ---
[facility] Subjective Date: 06/07/17 - Sujective/Severity of Illness Medications: Acetaminophen (Tylenol) 325 - 650 mg PO Q5H PRN PRN Reason: Discomfort Aspirin (Ecotrin) 81 mg PO DAILY [facility] Last Admin: 06/06/17 09:04 Dose: 81 mg Benzocaine (Cepacol Sore Throat Lozenge) 1 lozenge PO PRN PRN PRN Reason: Sore throat Escitalopram Oxalate (Lexapro) 15 mg PO DAILY [facility] Last Admin: 06/06/17 09:05 Dose: 15 mg Haloperidol (Haldol) 0.5 mg PO Q6H PRN PRN Reason: Extreme agitation Haloperidol Lactate (Haldol) 0.5 mg IM Q6H PRN PRN Reason: Extreme agitation Last Admin: 05/31/17 20:10 Dose: 0.5 mg Lorazepam (Ativan Inj) 1 mg IM Q6H PRN PRN Reason: Extreme agitation Last Admin: 05/31/17 01:50 Dose: 1 mg Lorazepam (Ativan Intensol) 1 mg PO Q6H PRN Last Admin: 06/01/17 21:48 Dose: 1 mg Lorazepam (Ativan) 1 mg PO Q6H PRN PRN Reason: Extreme agitation Last Admin: 05/28/17 21:43 Dose: 1 mg Risperidone (Risperdal M) 1 mg PO 19 [facility] Last Admin: 06/06/17 18:02 Dose: 1 mg Subjective: Patient seen and chart reviewed. Case discussed with treatment team. On interview, patient is pleasant, with bright affect. She os accepting of placement. Patient denies any SI, HI or AVH. Patient denies any adverse side effects related to psychotropic medications. Nursing staff report patient has not had any significant behavioral difficulties in the past 24 hours. Patient has been adherent with medications. Patient slept well overnight. VSS. Patient is eating well. Psychotropic PRNs required in the past 24 hours: none. Start Time: 12:20 Stop Time: 12:40 Mental Status Exam Vitals: Last Vital Signs Temp 98.0 F 06/06/17 15:37 Pulse 73 06/06/17 15:37 Resp 16 06/06/17 15:37 BP 99/62 06/06/17 15:37 Pulse Ox 98 06/06/17 15:37 Height: 1.52 m Weight: 53.8 kg - Mental Status Exam Muscle Strength/Tone: Normal Dressing: Casual Grooming: Good Attitude: Cooperative Motor Activity: Normal Eye Contact: Good Speech: Normal Volume: Normal Rhythm: Appropriate Rhythm Orientation: Disoriented to time, Disoriented to place, Disoriented to situation , Oriented to person Mood: Euthymic Affect: Bright Rate of Thoughts: Appropriate Rate Thought Organization: Circumstantial, Tangential (at times) Associations: Illogical (at times) Abstract Reasoning: Poor abstract reasoning Thought Content: Normal Perception/Psychotic: Perception Normal Language: Naming Intact Fund of Knowledge: Other (Decreased from premorbid baseline) Memory: Poor-recent Suicidal Ideation: Denies Homicidal Ideation: Denies Insight: Impaired Judgement: Impaired Impulse Control: Fair - Laboratory Result Diagrams: 05/30/17 07:05 06/05/17 07:17 Assessment and Plan (1) Major neurocognitive disorder Problem details: with behavioral disturbance, Alzheimer's suspected, moderate Other medical problems: Hypernatremia-POA Hyperlipidemia Hypothyroidism Urinary incontinence Right carotid artery stenosis (Doppler 05/26 showing 50-69% stenosis) Cervical disc disease Current visit: Yes Status: Acute Continue current care, SW/CM working on discharge arrangements - likely tomorrow. Hospital Course Summary Disclaimer: The visit summary below is not to be considered part of the above Progress Note. Hospital Course: 05/24/17 Psych: Start Zyprexa 2.5mg PO at dinnertime. 05/25/17 Psych: Continue current care; monitor response to scheduled Zyprexa. Consider starting antidepressant such as mirtazapine. 05/26/17 Psych: Patient to be on 1:1 within line of sight when agitated. She later calms and forgets suicidal statements/gestures due to STM loss. I do not feel it is safe for staff or therapeutic for patient to require them to be in arm's reach at all times. Will increase Zyprexa to 2.5mg PO BID and start mirtazapine 7.5mg PO q HS tonight. 05/27/17 Psych- Pt is pleasant but confused. Continue current care 05/28/17 Psych- PT remains irritable and aggressive at times. Increase 1800 dose of Zyprexa to 5mg 05/28/17 Continue safe environment. Behaviors remain an issue. She has been quite violent with staff at times. Continues to require PRN meds. Will repeat labs in am, Lipid panel and A1c for core measures. 05/29/17 Psych: Zyprexa increased yesterday; monitor response. Consider decreasing dose of PRN Ativan as it may be disinhibiting her. 05/31/17 Psych: Will add Depakote DR 250mg PO q HS to target ; monitor response. (Patient never got Depakote and it was not continued after switch to Risperdal on 06/01). 06/01/17 Psych: Will discontinue Zyprexa and switch to Risperdal BID (in afternoon and evening). Have asked nursing to call me if she refuses meds because will consider IM administration. 06/02/17 Psych: Will start Lexapro 10mg PO today to help with mood. Will also order CT of head in regards to possible etiology of dementia. 06/03/17 Psych- Pt states her mood is improved. Continue current care 06/03/17 hospitalist:No medical concerns at this time. Her niece reports she is due to have a repeat carotid sonogram in the month of May. This will be done on an outpatient basis. Nurse's notes, psychiatric notes, vitals and labs reviewed. 06/04/17 Psych- Pt slightly more confused today. Continue current care 06/04/17 hospitalist Medically stable; attempted to contact patient's son per her request to discuss timing of carotid Dopplers. Typically Dr. Fang has studies done in the vascular lab rather than radiology and I suspect he will want hers done and they are with a can be compared to prior studies. Given the absence of acute symptoms I don't believe there is an urgent need for studies to be done prior to discharge but will readdress with family when I can reach them. Head CT reviewed by myself demonstrating chronic microvascular changes but no evidence of stroke/acute pathology. LDL quite high but patient is been intolerant of several statins in the past. Defer management to PCP. B-12 low normal; methylmalonic acid to be obtained as more sensitive. 06/05/17 Psych: Increase Lexapro to 15mg PO daily; continue Risperdal 1mg PO BID. CM is working with family and facilities, preferably [facility], in regards to discharge planning. 06/06/17 Psych: Continue current care, SW/CM working on discharge arrangements - likely tomorrow.
--- NOTE | 2017-06-07 07:19 | Extended Care Facility Orders ---
Admission Orders Admit to:: [facility] Allergies/Adverse Reactions: Allergies latex Allergy (Severe, Verified 05/23/17 10:23) Anaphylactic Shock Sulfa (Sulfonamide Antibiotics) Allergy (Severe, Verified 05/23/17 10:23) Anaphylactic Shock atorvastatin [From Lipitor] Allergy (Verified 05/23/17 10:23) clindamycin Allergy (Verified 05/23/17 10:23) Dizziness iodine Allergy (Verified 05/23/17 10:23) rosuvastatin [From Crestor] Allergy (Verified 05/23/17 10:23) Admitting Diagnosis: Dementia with behavioral disturbance Admitting Physician: Zoey Beltre MD Attending Physician: Zoey Beltre MD Code Status: Full Code Anticiapted Length of Stay: greater than 30 days Diet: 05/23/17 Lunch Regular Diet [DIET] Diet Modifications: May use Facility Protocol or Standing Orders: Yes May have flu vaccine: Yes Evaluations/Treatment: Psychiatric, as needed [facility] Certification: I certify that SNF services are required to be given on an Inpatient basis because of the patients need for longterm care on a continuing basis for the condition(s) for which he/she received inpatient hospital services prior to his/her transfer to the SNF. SNF inpatient care is necessary for the following reasons Indication for [facility]: Not Applicable - Additional Information In Event of Arrest: Start CPR,call 911,send patient to the ER Resident is Aware of Diagnosis: No (due to dementia) Referrals: Reymundo Fernandez [Physician] - (Dr. Nichelle Fernandez, Conveyor Weigher Operator will see patient on rounds at the facility for Hosp. follow-up. . Dianelys Hill APRN will see patient on rounds at the facility for Mental Health follow-up. )
[2017-06-07] MEDS: ESCITALOPRAM 20 MG TABLET PO SCH (08:52)
[2017-06-07] MEDS: ASPIRIN *EC* 81 MG TABLET PO SCH (08:52)
--- NOTE | 2017-06-07 12:19 | Neuropsych Progress Note ---
[facility] Subjective Date: 06/07/17 - Sujective/Severity of Illness Medications: Acetaminophen (Tylenol) 325 - 650 mg PO Q5H PRN PRN Reason: Discomfort Aspirin (Ecotrin) 81 mg PO DAILY [facility] Last Admin: 06/07/17 08:52 Dose: 81 mg Benzocaine (Cepacol Sore Throat Lozenge) 1 lozenge PO PRN PRN PRN Reason: Sore throat Escitalopram Oxalate (Lexapro) 15 mg PO DAILY [facility] Last Admin: 06/07/17 08:52 Dose: 15 mg Haloperidol (Haldol) 0.5 mg PO Q6H PRN PRN Reason: Extreme agitation Haloperidol Lactate (Haldol) 0.5 mg IM Q6H PRN PRN Reason: Extreme agitation Last Admin: 05/31/17 20:10 Dose: 0.5 mg Lorazepam (Ativan Inj) 1 mg IM Q6H PRN PRN Reason: Extreme agitation Last Admin: 05/31/17 01:50 Dose: 1 mg Lorazepam (Ativan Intensol) 1 mg PO Q6H PRN Last Admin: 06/01/17 21:48 Dose: 1 mg Lorazepam (Ativan) 1 mg PO Q6H PRN PRN Reason: Extreme agitation Last Admin: 05/28/17 21:43 Dose: 1 mg Risperidone (Risperdal M) 1 mg PO [facility] Last Admin: 06/06/17 18:02 Dose: 1 mg Subjective: Patient seen and chart reviewed. Case discussed with treatment team. On interview, patient is pleasant, with bright affect. She is accepting of placement. Patient denies any SI, HI or AVH. Patient denies any adverse side effects related to psychotropic medications. She reports feeling "great" mentally and physically. Nursing staff report patient has not had any significant behavioral difficulties in the past 24 hours. She has been helpful and kind to other patients. Patient has been adherent with medications. Patient slept well overnight. VSS. Patient is eating well. Psychotropic PRNs required in the past 24 hours: none. Start Time: 10:00 Stop Time: 10:20 Mental Status Exam Vitals: Last Vital Signs Temp 98.3 F 06/07/17 07:23 Pulse 72 06/07/17 07:23 Resp 14 06/07/17 07:23 BP 95/63 06/07/17 07:23 Pulse Ox 97 06/07/17 07:23 Height: 1.52 m Weight: 53.8 kg - Mental Status Exam Muscle Strength/Tone: Normal Dressing: Casual Grooming: Good Attitude: Cooperative Motor Activity: Normal Eye Contact: Good Speech: Normal Volume: Normal Rhythm: Appropriate Rhythm Orientation: Disoriented to time, Disoriented to place, Disoriented to situation , Oriented to person Mood: Euthymic Affect: Bright Rate of Thoughts: Appropriate Rate Thought Organization: Circumstantial, Tangential (at times) Associations: Illogical (at times) Abstract Reasoning: Poor abstract reasoning Thought Content: Normal Perception/Psychotic: Perception Normal Language: Naming Intact Fund of Knowledge: Other (Decreased from premorbid baseline) Memory: Poor-recent Suicidal Ideation: Denies Homicidal Ideation: Denies Insight: Impaired Judgement: Impaired Impulse Control: Good, Fair - Laboratory Result Diagrams: 05/30/17 07:05 06/05/17 07:17 Assessment and Plan (1) Major neurocognitive disorder Problem details: with behavioral disturbance, Alzheimer's suspected, moderate Other medical problems: Hypernatremia-POA Hyperlipidemia Hypothyroidism Urinary incontinence Right carotid artery stenosis (Doppler 05/26 showing 50-69% stenosis) Cervical disc disease Current visit: Yes Status: [facility] Hospital Course Summary Disclaimer: The visit summary below is not to be considered part of the above Progress Note. Hospital Course: 05/24/17 Psych: Start Zyprexa 2.5mg PO at dinnertime. 05/25/17 Psych: Continue current care; monitor response to scheduled Zyprexa. Consider starting antidepressant such as mirtazapine. 05/26/17 Psych: Patient to be on 1:1 within line of sight when agitated. She later calms and forgets suicidal statements/gestures due to STM loss. I do not feel it is safe for staff or therapeutic for patient to require them to be in arm's reach at all times. Will increase Zyprexa to 2.5mg PO BID and start mirtazapine 7.5mg PO q HS tonight. 05/27/17 Psych- Pt is pleasant but confused. Continue current care 05/28/17 Psych- PT remains irritable and aggressive at times. Increase 1800 dose of Zyprexa to 5mg 05/28/17 Continue safe environment. Behaviors remain an issue. She has been quite violent with staff at times. Continues to require PRN meds. Will repeat labs in am, Lipid panel and A1c for core measures. 05/29/17 Psych: Zyprexa increased yesterday; monitor response. Consider decreasing dose of PRN Ativan as it may be disinhibiting her. 05/31/17 Psych: Will add Depakote DR 250mg PO q HS to target ; monitor response. (Patient never got Depakote and it was not continued after switch to Risperdal on 06/01). 06/01/17 Psych: Will discontinue Zyprexa and switch to Risperdal BID (in afternoon and evening). Have asked nursing to call me if she refuses meds because will consider IM administration. 06/02/17 Psych: Will start Lexapro 10mg PO today to help with mood. Will also order CT of head in regards to possible etiology of dementia. 06/03/17 Psych- Pt states her mood is improved. Continue current care 06/03/17 hospitalist:No medical concerns at this time. Her niece reports she is due to have a repeat carotid sonogram in the month of May. This will be done on an outpatient basis. Nurse's notes, psychiatric notes, vitals and labs reviewed. 06/04/17 Psych- Pt slightly more confused today. Continue current care 06/04/17 hospitalist Medically stable; attempted to contact patient's son per her request to discuss timing of carotid Dopplers. Typically Dr. Fang has studies done in the vascular lab rather than radiology and I suspect he will want hers done and they are with a can be compared to prior studies. Given the absence of acute symptoms I don't believe there is an urgent need for studies to be done prior to discharge but will readdress with family when I can reach them. Head CT reviewed by myself demonstrating chronic microvascular changes but no evidence of stroke/acute pathology. LDL quite high but patient is been intolerant of several statins in the past. Defer management to PCP. B-12 low normal; methylmalonic acid to be obtained as more sensitive. 06/05/17 Psych: Increase Lexapro to 15mg PO daily; continue Risperdal 1mg PO BID. CM is working with family and facilities, preferably [place], in regards to discharge planning. 06/06/17 Psych: Continue current care, SW/CM working on discharge arrangements - likely tomorrow. 06/07/17 Psych: Discharge to [facility] with memory care support today.
--- NOTE | 2017-06-07 14:30 | Progress Note ---
- Date 06/07/17 Subjective: I was called to assess Elle prior to planned discharge this afternoon. Before lunch, while standing in the day room, she became near-syncopal and felt like she was "melting". She denied having sweating, nausea, chest pain, SOA, abd pain , or headache then or now. RN checked her BP b/l - SBP on L was in the 70s whereas on the R it was only in the 90s. After drinking some water and resting, she felt much better and has ambulated through the halls asymptomatically. On BP recheck, the discrepancy remained. By the time I arrived, L BP was 83/62 and R was 111/59. Objective Vital signs: Temperature 98.3 F 06/07/17 07:23 Pulse Rate 72 06/07/17 07:23 Respiratory Rate 14 06/07/17 07:23 Blood Pressure 95/63 06/07/17 07:23 Pulse Oximetry 97 06/07/17 07:23 Height/Weight/BMI: Height 1.52 m Weight 53.8 kg Body Mass Index 23.0 - Constitutional Present: no acute distress, well nourished, well developed - Routine HEENT Exam Head: Present: normocephalic Eye: Present: PERRL. Absent: conjunctival icterus, scleral injection ENT: Present: mucous membranes moist, oropharynx clear - Routine Respiratory Exam Present: CTA bilaterally - Routine Cardiovascular Exam Present: RRR, S1, S2 - Routine Abdominal Exam Present: soft, normoactive bowel sounds, non distended, non tender - Routine Extremities Exam Present: no edema, pulses intact (radial and pedal pulses equal) - Routine Musculoskeletal Exam Musculoskeletal: Present: moving extremities well - Routine Skin Exam Present: intact, dry, warm - Routine Neurological Exam Present: alert, CN II-XII intact, normal speech. Absent: oriented X3 - Routine Psychiatric Exam Present: normal affect, normal thought process, cooperative Results - Labs CBC & Chem 7: 05/30/17 07:05 06/05/17 07:17 Assessment and Plan (1) Agitation Current visit: Yes Status: Acute (2) Confusion Current visit: Yes Status: Acute (3) Major neurocognitive disorder Problem details: with behavioral disturbance, Alzheimer's suspected, moderate Other medical problems: Hypernatremia-POA Hyperlipidemia Hypothyroidism Urinary incontinence Right carotid artery stenosis (Doppler 05/26 showing 50-69% stenosis) Cervical disc disease Current visit: Yes Status: Acute Assessment and Plan: Assessment Cognitive impairment with increasing agitation Hypernatremia-POA Hyperlipidemia-LDL 183 Hypothyroidism Urinary incontinence Right carotid artery stenosis (Doppler 05/26 showing 50-69% stenosis) Anxiety Cervical disc disease Borderline low B-12 level Plan Discussed findings with Elle Murcia's son and DPOA. He is unaware of this being an existing problem and wishes to proceed with further testing, as recommended by the medical team. Typically we would order a CTA aorta but the patient has a listed allergy to iodine dye ("can't handle it" per PCP's chart). Neither the son or patient know exactly what her symptoms entail. Therefore, an MRA of her chest/abdomen w/ and w/o contrast was ordered. If this is negative for aortic disruption, she could still discharge today and pursue outpatient evaluation. RN will set up carotid doppler prior to discharge as well. B-12 low normal; methylmalonic acid level is pending. Discussed with Dr. Peters. - Physician Narrative Narrative: Date: 06/07/17 Time: 1426 Hospital Course Summary Disclaimer: The visit summary below is not to be considered part of the above Progress Note. Hospital Course: 05/24/17 Psych: Start Zyprexa 2.5mg PO at dinnertime. 05/25/17 Psych: Continue current care; monitor response to scheduled Zyprexa. Consider starting antidepressant such as mirtazapine. 05/26/17 Psych: Patient to be on 1:1 within line of sight when agitated. She later calms and forgets suicidal statements/gestures due to STM loss. I do not feel it is safe for staff or therapeutic for patient to require them to be in arm's reach at all times. Will increase Zyprexa to 2.5mg PO BID and start mirtazapine 7.5mg PO q HS tonight. 05/27/17 Psych- Pt is pleasant but confused. Continue current care 05/28/17 Psych- PT remains irritable and aggressive at times. Increase 1800 dose of Zyprexa to 5mg 05/28/17 Continue safe environment. Behaviors remain an issue. She has been quite violent with staff at times. Continues to require PRN meds. Will repeat labs in am, Lipid panel and A1c for core measures. 05/29/17 Psych: Zyprexa increased yesterday; monitor response. Consider decreasing dose of PRN Ativan as it may be disinhibiting her. 05/31/17 Psych: Will add Depakote DR 250mg PO q HS to target ; monitor response. (Patient never got Depakote and it was not continued after switch to Risperdal on 06/01). 06/01/17 Psych: Will discontinue Zyprexa and switch to Risperdal BID (in afternoon and evening). Have asked nursing to call me if she refuses meds because will consider IM administration. 06/02/17 Psych: Will start Lexapro 10mg PO today to help with mood. Will also order CT of head in regards to possible etiology of dementia. 06/03/17 Psych- Pt states her mood is improved. Continue current care 06/03/17 hospitalist:No medical concerns at this time. Her niece reports she is due to have a repeat carotid sonogram in the month of May. This will be done on an outpatient basis. Nurse's notes, psychiatric notes, vitals and labs reviewed. 06/04/17 Psych- Pt slightly more confused today. Continue current care 06/04/17 hospitalist Medically stable; attempted to contact patient's son per her request to discuss timing of carotid Dopplers. Typically Dr. Fang has studies done in the vascular lab rather than radiology and I suspect he will want hers done and they are with a can be compared to prior studies. Given the absence of acute symptoms I don't believe there is an urgent need for studies to be done prior to discharge but will readdress with family when I can reach them. Head CT reviewed by myself demonstrating chronic microvascular changes but no evidence of stroke/acute pathology. LDL quite high but patient is been intolerant of several statins in the past. Defer management to PCP. B-12 low normal; methylmalonic acid to be obtained as more sensitive. 06/05/17 Psych: Increase Lexapro to 15mg PO daily; continue Risperdal 1mg PO BID. CM is working with family and facilities, preferably [place], in regards to discharge planning. 06/06/17 Psych: Continue current care, SW/ANGELICA working on discharge arrangements - likely tomorrow. 06/07/17 Psych: Discharge to [place] with memory care support today. 06/07/17 Discussed findings with Elle Murcia's son and DPOA. He is unaware of this being an existing problem and wishes to proceed with further testing, as recommended by the medical team. Typically we would order a CTA aorta but the patient has a listed allergy to iodine dye ("can't handle it" per PCP's chart). Neither the son or patient know exactly what her symptoms entail. Therefore, an MRA of her chest/abdomen w/ and w/o contrast was ordered. If this is negative for aortic disruption, she could still discharge today and pursue outpatient evaluation. RN will set up carotid doppler prior to discharge as well. B-12 low normal; methylmalonic acid level is pending. Addendum entered and electronically signed by Sirisha Rosen APRN 06/07/17 19: 17: Results of carotid doppler: 1. 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 This causes a 50-70% stenosis. 2. 50-60% stenosis of the right proximal to mid ICA. 3. Retrograde flow in the left vertebral artery suggesting a more proximal occlusion. This could cause a subclavian steal phenomenon. MRA chest was negative for aortic dissection. I discussed these findings with her son/DPOA, Twin (phone #: [phone]). He will find out which Dr. Fang to follow up with and call us in the morning. I recommended discussion and establishment of f/u with the vascular surgeon prior to discharge from [facility] since she was symptomatic today with a near- syncopal event. Discussed with Dr. Peters.
--- NOTE | 2017-06-07 15:39 | Ultrasound Report ---
Indication: carotid stenosis PROCEDURE: US carotid doppler BI: TECHNIQUE: Grayscale, color and duplex Doppler imaging was performed of the carotid systems bilaterally. Velocities in cm/sec - validated velocity measurements with angiographic measurements, velocity criteria are extrapolated from diameter data as defined by the Society of Radiologists in Ultrasound Consensus Conference Radiology 2003; 229;340-346. RIGHT: PSV ICA 164 EDV ICA 32.2 PSV CCA 138 EDV CCA 28.4 SVR 1.2 PSV ECA 199 ICA Diameter reduction 50-60% LEFT: PSV ICA 118 EDV ICA 23.6 PSV CCA 163 EDV CCA 32.7 SVR 0.7 PSV ECA 84.2 ICA Diameter reduction 10%-30% (1.0-1.2 PSV<110)% The right vertebral artery is patent with cephalic flow. The left vertebral artery shows retrograde flow. There is a linear structure in the left distal common carotid artery that may represent a tiny dissection flap possibly related to the patient's prior surgery. This causes mild luminal narrowing with elevated velocities distally up to 264 cm/s. Significant intimal thickening in the right common carotid artery up to 3.2 mm. Atherosclerotic plaque in the right carotid bulb and proximal to mid ICA with mildly elevated velocities. IMPRESSION: 1. 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 This causes a 50-70% stenosis. 2. 50-60% stenosis of the right proximal to mid ICA. 3. Retrograde flow in the left vertebral artery suggesting a more proximal occlusion. This could cause a subclavian steal phenomenon. .
[2017-06-07] MEDS ORDERED: SALINE FLUSH 10ml SYRINGE ONE (16:20)
[2017-06-07] MEDS ORDERED: GADOTERIDOL 279.3mg/ml - 10ml vial IVP ONE (16:21)
[2017-06-07] MEDS: RisperiDONE ODT 0.5 MG TABLET PO SCH ×2 (16:37→18:06)
--- NOTE | 2017-06-07 18:25 | Magnetic Resonance Report ---
Indication: syncope, unequal bp, r/o aorta dissection PROCEDURE: MR angio chest, abdomen and pelvis wo/w con: Encounter: Initial Comparison: None Technique: Multiplanar multisequence MR imaging of the chest, abdomen and pelvis was performed to evaluate the aorta. Pre and postcontrast imaging was performed with three-dimensional volumetric reconstructed images performed by the technologist on a workstation. Contrast: 10 mL of ProHance Findings: MRA chest: Aortic caliber is normal measuring 2.5 cm in the ascending aorta and 1.8 cm in the descending thoracic aorta. No evidence of aneurysm or dissection. The visualized lung lambert appear grossly clear. The visualized great vessel origins are patent. MRA abdomen: No evidence of aortic dissection or aneurysm. Maximal abdominal aortic diameter is 1.8 cm. There is mild plaque causing mild narrowing of the celiac origin. There is no significant stenosis at the SMA origin or renal artery origins. The ASH is patent as well. MRA pelvis: The distal abdominal aorta appears normal in caliber without evidence of dissection or aneurysm. The common, iliac arteries are normal in caliber. The visualized internal and iliac arteries also show no evidence of stenosis or aneurysm. Impression: No evidence of aortic aneurysm or dissection. No findings of acute aortic syndrome. No acute abnormality seen. .
[2017-06-08] MEDS: ASPIRIN *EC* 81 MG TABLET PO SCH (08:24)
[2017-06-08] MEDS: ESCITALOPRAM 20 MG TABLET PO SCH (08:24)
[2017-06-08 08:36] VITALS: BP 110/65; PULSE 90; RESP 16; TEMP 97.6; O2SAT 92
[2017-06-08] MEDS: RisperiDONE ODT 0.5 MG TABLET PO SCH (12:56)
--- NOTE | 2017-06-09 13:18 | Progress Note ---
Progress Note: F/U: carotid doppler results, lab results. Elle underwent carotid Doppler on 06/07/17 which revealed: tiny probably dissection flap in left distal common carotid artery which may be chronic given history of prior endarterectomy and 50-70% stenosis;50-60% stenosis right proximal mid ICA; retrograde flow in left vertebral artery suggesting more proximal occlusion which could cause subclavian steal phenomenon. She also underwent MRA angio chest which showed no evidence of aortic aneurysm or dissection or findings of acute aortic syndrome. Results of the imaging studies were discussed with the family. Family indicated that the patient follows with Dr. Gokul Fang. Attempt to discuss imaging results with Dr. Fang were made, but due to being in surgery, results were not able to be discussed with him directly. Multiple phone calls between [facility] [place]. Annalisa Robison's nurse ensued. A fax including the patients most recent progress note and imaging results was sent directly to [facility] for review by Dr. Fang. Based on the results, Dr. Fang was comfortable seeing the patient in clinic on June 14 for further follow up. At the time of discharge on 06/08/17, the patient denied any visual changes, headaches, dizziness or near-syncope. She was discharged to [facility] in [place] on 06/08/17. On 06/09/17, the patient's methylamine acid results were available and were elevated at 0.9 (normal is <0.4). Review of her previous labs indicated initial B12 was borderline low at 313 on 06/05/17. After multiple phone calls, results were communicated to Dianelys Hill APRN at [facility] and treatment recommendations were discussed including initiation of Vit. B12 1000mcg IM weekly until B12 improved/normalized at which time B12 could be converted to oral supplementation daily or continue with B12 IM once monthly. Recent labs and documentation were faxed to Dianelys Hill APRN on 06/09/17. Welcomed continued communication with [facility] hospitalist service if additional questions or concerns.
--- NOTE | 2017-06-12 11:44 | Neuropsychiatric Disch Summary ---
Discharge Information Date of admission: 05/23/17 12:37 Anticipated date of discharge: 06/08/17 Attending Physician: Zoey Beltre MD Primary care physician: Fransisco Blanco Consults: 05/23/17 14:43 Case Management Consult [CONS] Routine Reason For Exam: Optimization of medical comorbidities Physician Consult [CONS] Routine Consulting Provider: Augusto Pollard Reason For Exam: Optimization of medical comorbidities Ordering Provider has Notified Director Of Community Life: No Comment: Nursing - please notify - Discharge Diagnosis (1) Major neurocognitive disorder Status: Acute Major neurocognitive disorder, moderate, Alzheimer's type, with behavioral disturbance - Laboratory Labs: 05/30/17 07:05 06/05/17 07:17 Date of Admission: 05/23/17 12:37 History of Present Illness: Patient is a 76-year-old , retired female who was admitted to [facility] [place] on 05/23/17 due to concerns from her family. Family reports cognitive issues though patient was living at home and her was in [place]. On interview, patient is oriented to city but little else. She is very frustrated with her family and believes her son and DIL are plotting to get rid of her because she is too much of a burden on them. She lives independently and was reportedly still driving, she likes going on walks and gardening. Patient has made multiple suicidal statements to staff since admission though it does not appear these are persistent. She made a remark about someone else slitting her throat but she denies plan to me. She says she would rather than stay on this unit but also denies plan/intent to harm herself here on the unit. She denies HI or AVH. She does complain of difficulty with words coming out the wrong way and this happened during the interview as well. She does not have any insight into her memory problems. She denies change in sleep, ora appetite. She reports feeling well physically. She denies any past psychiatric history other than she is unsure if she has ever taken antidepressants. She denies hx of suicide attempts or psych hospitalizations. She denies a past history of symptoms consistent with aby. Last night, patient grabbed staff member's finger and wrenched it leading to a spiral fracture. She is very particular about her things and escalates at times. Hospital Course This is a general summary of the patient's hospital course. For more details refer to the complete medical record. Hospital course: 05/24/17 Psych: Start Zyprexa 2.5mg PO at dinnertime. 05/25/17 Psych: Continue current care; monitor response to scheduled Zyprexa. Consider starting antidepressant such as mirtazapine. 05/26/17 Psych: Patient to be on 1:1 within line of sight when agitated. She later calms and forgets suicidal statements/gestures due to STM loss. I do not feel it is safe for staff or therapeutic for patient to require them to be in arm's reach at all times. Will increase Zyprexa to 2.5mg PO BID and start mirtazapine 7.5mg PO q HS tonight. 05/27/17 Psych- Pt is pleasant but confused. Continue current care 05/28/17 Psych- PT remains irritable and aggressive at times. Increase 1800 dose of Zyprexa to 5mg 05/28/17 Continue safe environment. Behaviors remain an issue. She has been quite violent with staff at times. Continues to require PRN meds. Will repeat labs in am, Lipid panel and A1c for core measures. 05/29/17 Psych: Zyprexa increased yesterday; monitor response. Consider decreasing dose of PRN Ativan as it may be disinhibiting her. 05/31/17 Psych: Will add Depakote DR 250mg PO q HS to target ; monitor response. (Patient never got Depakote and it was not continued after switch to Risperdal on 06/01). 06/01/17 Psych: Will discontinue Zyprexa and switch to Risperdal BID (in afternoon and evening). Have asked nursing to call me if she refuses meds because will consider IM administration. 06/02/17 Psych: Will start Lexapro 10mg PO today to help with mood. Will also order CT of head in regards to possible etiology of dementia. 06/03/17 Psych- Pt states her mood is improved. Continue current care 06/03/17 hospitalist:No medical concerns at this time. Her niece reports she is due to have a repeat carotid sonogram in the month of May. This will be done on an outpatient basis. Nurse's notes, psychiatric notes, vitals and labs reviewed. 06/04/17 Psych- Pt slightly more confused today. Continue current care 06/04/17 hospitalist Medically stable; attempted to contact patient's son per her request to discuss timing of carotid Dopplers. Typically Dr. Fang has studies done in the vascular lab rather than radiology and I suspect he will want hers done and they are with a can be compared to prior studies. Given the absence of acute symptoms I don't believe there is an urgent need for studies to be done prior to discharge but will readdress with family when I can reach them. Head CT reviewed by myself demonstrating chronic microvascular changes but no evidence of stroke/acute pathology. LDL quite high but patient is been intolerant of several statins in the past. Defer management to PCP. B-12 low normal; methylmalonic acid to be obtained as more sensitive. 06/05/17 Psych: Increase Lexapro to 15mg PO daily; continue Risperdal 1mg PO BID. CM is working with family and facilities, preferably [place], in regards to discharge planning. 06/06/17 Psych: Continue current care, SW/ANGELICA working on discharge arrangements - likely tomorrow. 06/07/17 Psych: Discharge to DC with memory care support today. 06/07/17 Discussed findings with Elle Murcia's son and DPOA. He is unaware of this being an existing problem and wishes to proceed with further testing, as recommended by the medical team. Typically we would order a CTA aorta but the patient has a listed allergy to iodine dye ("can't handle it" per PCP's chart). Neither the son or patient know exactly what her symptoms entail. Therefore, an MRA of her chest/abdomen w/ and w/o contrast was ordered. If this is negative for aortic disruption, she could still discharge today and pursue outpatient evaluation. RN will set up carotid doppler prior to discharge as well. B-12 low normal; methylmalonic acid level is pending. Resuscitation Status: Full Code Discharge Plan - Med Rec/Dispo Referrals/Follow Up: Gokul Fang [Physician] - (Dr. Radha Fang on 06/14/17 at 9:30 am for follow-up. Check in at 9:15 am. [place] [employer] Manager [address], [address] [facility], [id number] ) Reymundo Fernandez [Physician] - (Dr. Nichelle Fernandez, Dry Drug Worker will see patient on rounds at the facility for Hosp. follow-up. . Dianelys Hill APRN will see patient on rounds at the facility for Mental Health follow-up. ) Additional Instructions: Discharge Diagnosis: Major neurocognitive disorder, Alzheimer's, moderate, with behavioral disturbance IN CASE OF PSYCHIATRIC EMERGENCY, CONTACT GENERATIONS STAFF AT [phone] ( available 24 hrs daily). Prescriptions: New Escitalopram [Lexapro] 15 mg PO DAILY tab RisperiDONE ODT [RisperDAL M] 1 mg PO 13,19 tab Continue Calcium Carb/D3/Magnesium/Zinc [Royal Mag Zinc + D3 Tablet] 1 tab PO DAILY Niacin 500 mg PO DAILY Ubidecarenone/Vit E Acet [Co Q-10 100 mg Softgel] 100 mg PO DAILY Lysine HCl [l-Lysine] 1,000 mg PO DAILY PRN PRN Reason: Prn Orders Glucosa Rodas 2Kcl/Chondroitin Rodas [Glucosamine Chondroitin Caplet] 1 tab PO DAILY Vitamin B Complex Vit C No.4 [Super B Complex] 150 mg PO DAILY Aspirin [Aspirin EC] 81 mg PO DAILY Folic Acid/Multivit-Min/Lutein [Centrum Silver Chewable Tablet] 1 tab PO DAILY Dowell-3/Dha/Epa/Fish Oil [Fish Oil 1,000 mg Softgel] 1,000 mg PO TID Discontinued LORazepam [Ativan] 0.5 mg PO BID PRN PRN Reason: Prn Orders Milk Thistle 175 mg PO DAILY Turmeric Root Extract [Turmeric] 500 mg PO DAILY Prevagen 10 mg PO DAILY Escitalopram [Lexapro] 10 mg PO DAILY PRN PRN Reason: Prn Orders Flaxseed Oil 1,000 mg PO DAILY Acetaminophen/Diphenhydramine [Acetaminophen Pm Caplet] 1 tab PO HS PRN PRN Reason: Prn Orders - Disposition 01 Discharged Home, Self-Care - Dismissal Complete Discharge Instructions are:: Complete
== END 2017-06-08 14:10 | disposition home or self-care (01) | DRG 57 ==
LOC: ED 09:28 → GEN 12:37
PROVIDERS: ADMIT Psychiatry & Neurology Psychiatry; ATTEND Psychiatry & Neurology Psychiatry